=== PATIENT | female | born 1945 | race Caucasian/White ===

== ENCOUNTER 2017-09-02 14:40 | Observation (INO) | payer OTHER, MEDICARE ==
[~2017-09-02] VITALS: Ht 160 cm; Wt 67.9 kg
[~2017-09-02 14:40] MED LIST: DFL100 PO; FISHOIL PO; HYZ/50125 PO; LORA-741 PO; MULTTAB58 PO; ONDA8TAB7 PO; PRAV20TA PO; PROM25TA PO; PRT40 PO; TIOTCAP INH; WLC625 PO
[2017-09-02] MEDS ORDERED: SODIUM CHLORIDE 0.9% 500ML 500 ML IV STA (15:09)
[2017-09-02] MEDS ORDERED: ASPIRIN 81 MG CHEW PO STA (15:09)
[2017-09-02] MEDS ORDERED: NITROGLYCERIN 0.4 MG SL PER TAB CHARGE SL PRN ×2 (15:15→16:15)
[2017-09-02 15:33] LABS: BASO % 0.4 %; BASO ABS # 0.04 K/uL (0-0.2); EOS % 6.6 %; EOS ABS # 0.65 K/uL (0-0.5); HEMATOCRIT 41.6 % (37-47); HEMOGLOBIN 14.8 g/dL (12.0-16.0); IG# 0.01 K/uL (0.00-0.02); LYMPH % 23.1 %; LYMPH ABS # 2.27 K/uL (1.2-3.4); MEAN CORPUSCULAR HEMOGLOBIN 32.4 pg (25-34); MEAN CORPUSCULAR HGB CONC 35.6 g/dl (32-36); MONO % 8.2 %; MONO ABS # 0.81 K/uL (0.11-0.59); NEUT % 61.6 %; NEUT ABS # 6.05 K/uL (1.4-6.5); PLATELET COUNT 211 K/uL (130-400); RED CELL DISTRIBUTION WIDTH CV 12.6 % (11.5-14.5); RED CELL DISTRIBUTION WIDTH SD 41.8 fL (36.4-46.3); WHITE BLOOD COUNT 9.83 K/uL (4.8-10.8)
[2017-09-02 15:49] LABS: BLOOD UREA NITROGEN 19 mg/dl (7-18); CALCIUM 8.7 mg/dl (8.5-10.1); CARBON DIOXIDE 25 mmol/L (21-32); CREATININE 0.84 mg/dl (0.60-1.20); GLUCOSE 84 mg/dl (70-99); POTASSIUM 3.3 mmol/L (3.5-5.1); SODIUM 141 mmol/L (136-145)
--- NOTE | 2017-09-02 15:57 | DIAGNOSTIC IMAGING REPORT ---
CHEST ONE VIEW PORTABLE CLINICAL HISTORY: Chest Pain dyspnea COMPARISON STUDY: 05/26/2015 FINDINGS: The bones soft tissues and hemidiaphragms are normal. The cardiomediastinal silhouette is normal. The lungs are clear. The pulmonary vasculature is normal. IMPRESSION: Negative chest. The above report was generated using voice recognition software. It may contain grammatical, syntax or spelling errors. Electronically signed by: Adrian Galeano M.D. 09/02/2017 3:56 PM Dictated Date/Time: 09/02/2017 3:56 PM
[2017-09-02] MEDS ORDERED: FENTANYL CITRATE INJ 50 MCG/1 ML 2 ML VIAL IV STA (16:08)
[2017-09-02] MEDS ORDERED: POTASSIUM CHLORIDE 10 MEQ TABCR PO STA (16:10)
[2017-09-02] MEDS ORDERED: CLOP1TAB5 PO (16:11)
[2017-09-02] MEDS ORDERED: ASPI81TA28 PO (16:11)
[2017-09-02] MEDS ORDERED: TAMO20TA9 PO (16:11)
[2017-09-02] MEDS ORDERED: PRAV20TA PO (16:11)
[2017-09-02] MEDS ORDERED: HYZ/50125 PO (16:11)
[2017-09-02] MEDS ORDERED: LORA-741 PO (16:11)
[2017-09-02] MEDS ORDERED: WLC625 PO (16:11)
[2017-09-02] MEDS ORDERED: MAGNESIUM HYDROXIDE SUSP 30 ML UDC PO PRN (16:15)
[2017-09-02] MEDS ORDERED: ONDANSETRON INJ 2 MG/ML 2 ML VIAL IV PRN (16:15)
[2017-09-02] MEDS ORDERED: ACETAMINOPHEN 325 MG TAB PO PRN (16:15)
[2017-09-02] MEDS ORDERED: ALUMINUM/MAGNESIUM/SIMETH (MAALOX MAX) 30 ML UDC PO PRN (16:15)
[2017-09-02] MEDS ORDERED: POLYETHYLENE (MIRALAX) 17 GM PACK PO PRN (16:15)
--- NOTE | 2017-09-02 16:25 | History and Physical ---
History & Physical Date & Time of Service: September 02, 2017 at 16:24 Chief Complaint: Chest Tightness Primary Care Physician: Lee aMrroquin M.D. History of Present Illness Source: patient Open dictation this is a 71-year-old female with a past medical history of peripheral vascular disease with chronic right subclavian stenosis and carotid steal syndrome, status post bilateral common iliac stenting Was seen at [facility] cardiology office today with complaint of chest pain/ chest heaviness ongoing for the past 1 day, with radiation to both associated with shortness of, dizziness spell, had diaphoresis, episode of nausea and vomiting. Reported she has been having this chest heaviness intermittently for the past few weeks, symptom will resolved after taking rest But the chest discomfort started since yesterday has been persistent Twelve-lead EKG showed ST-T wave changes in inferior and anterior leads She was sent to [facility] ER for further evaluation Patient had a nuclear stress test on July 2015: Which was negative for stress- induced ischemia LV ejection fraction more than 70% In the ER patient continued to have chest heaviness, getting intermittent relief with sublingual nitro Refused to have a Nitropaste placed due to severe hypotensive episode in past Past Medical/Surgical History Medical Problems: (1) Anemia (2) Asthma (3) Breast cancer (4) Breast cancer (5) Chest pain (6) Constipation (7) Constipation (8) GERD (gastroesophageal reflux disease) (9) GI bleed (10) Hematemesis (11) History of endoscopy (12) Hypertension (13) Hypertension (14) Neck pain (15) Orthostatic hypotension (16) SOB (shortness of breath) Surgical Problems: (1) H/O mastectomy (2) H/O: hysterectomy (3) History of cholecystectomy (4) History of hysterectomy (5) History of mastectomy (6) Hx of cholecystectomy Family History FHx: cancer FHx: diabetes mellitus FHx: gallbladder disease FHx: heart disease FHx: hypertension FHx: lung disease Social History Smoking Status: Current Every Day Smoker Drug Use: none Marital Status: Housing status: lives with family Occupational Status: retired Immunizations History of Influenza Vaccine: Yes History of Tetanus Vaccine?: Unknown History of Pneumococcal: Yes Pneumococcal Date: Jun 06, 2010 History of Hepatitis B Vaccine: No Multi-Drug Resistant Organisms History of MDRO: No Allergies Coded Allergies: Morphine (Verified Allergy, Mild, UNSURE, 09/02/17) Clarithromycin (Verified Allergy, Unknown, ., 09/02/17) Codeine (Verified Allergy, Unknown, 09/02/17) Penicillins (Verified Allergy, Unknown, 09/02/17) Nitroglycerin (Unverified Adverse Reaction, Severe, BP DROP, 09/02/17) Home Medications Scheduled Aspirin (Aspirin Ec), 81 MG PO DAILY Clopidogrel Bisulfate (Plavix), 75 MG PO DAILY Colesevelam Hcl (Welchol), 2 TAB PO DAILY Hctz/Losartan (Hyzaar 12.5MG/50MG), 1 TAB PO DAILY Lorazepam (Ativan), 0.5 MG PO HS Pravastatin (Pravachol ), 20 MG PO DAILY Tamoxifen (Nolvadex), 20 MG PO DAILY Review of Systems Constitutional: + weight loss, + weakness Respiratory: + cough, + sputum, + shortness of breath, + dyspnea on exertion Cardiovascular: + chest pain (Heaviness intermittently), + palpitations Abdomen: + nausea, + vomiting Neurologic: No memory loss, No paralysis, No weakness, No numbness/tingling, No vertigo, No balance problems, No problem reported Psychiatric: No depression symptoms, No anhedonism, No anxiety, No insomnia, No substance abuse, No problem reported Endocrine: No fatigue, No excessive thirst, No excessive urination, No problem reported Physical Exam Vital Signs Date Time Temp Pulse Resp B/P (MAP) Pulse Ox O2 Delivery O2 Flow Rate FiO2 09/02/17 14:50 96 Room Air 09/02/17 14:42 36.8 78 20 156/76 96 Room Air General Appearance: no apparent distress Head: normocephalic, atraumatic Eyes: normal inspection, PERRL, EOMI, sclerae normal Neck: no JVD, no carotid bruits, trachea midline Respiratory/Chest: chest non-tender, lungs clear, normal breath sounds, no respiratory distress Cardiovascular: regular rate, rhythm, no JVD, no murmur Abdomen/GI: normal bowel sounds, non tender, soft Extremities/Musculoskelatal: no calf tenderness, normal capillary refill, no pedal edema Neurologic/Psych: no motor/sensory deficits, alert, normal reflexes, oriented x 3 Skin: normal color, warm/dry, no rash Diagnostics Laboratory Results Results Past 24 Hours Test 09/02/17 15:20 Range/Units White Blood Count 9.83 4.8-10.8 K/uL Red Blood Count 4.57 4.2-5.4 M/uL Hemoglobin 14.8 12.0-16.0 g/dL Hematocrit 41.6 37-47 % Mean Corpuscular Volume 91.0 80-100 fL Mean Corpuscular Hemoglobin 32.4 25-34 pg Mean Corpuscular Hemoglobin Concent 35.6 32-36 g/dl Platelet Count 211 130-400 K/uL Mean Platelet Volume 11.0 7.4-10.4 fL Neutrophils (%) (Auto) 61.6 % Lymphocytes (%) (Auto) 23.1 % Monocytes (%) (Auto) 8.2 % Eosinophils (%) (Auto) 6.6 % Basophils (%) (Auto) 0.4 % Neutrophils # (Auto) 6.05 1.4-6.5 K/uL Lymphocytes # (Auto) 2.27 1.2-3.4 K/uL Monocytes # (Auto) 0.81 0.11-0.59 K/uL Eosinophils # (Auto) 0.65 0-0.5 K/uL Basophils # (Auto) 0.04 0-0.2 K/uL RDW Standard Deviation 41.8 36.4-46.3 fL RDW Coefficient of Variation 12.6 11.5-14.5 % Immature Granulocyte % (Auto) 0.1 % Immature Granulocyte # (Auto) 0.01 0.00-0.02 K/uL D-Dimer 270 0-500 ug/L FEU Sodium Level 141 136-145 mmol/L Potassium Level 3.3 3.5-5.1 mmol/L Chloride Level 109 98-107 mmol/L Carbon Dioxide Level 25 21-32 mmol/L Anion Gap 7.0 3-11 mmol/L Blood Urea Nitrogen 19 7-18 mg/dl Creatinine 0.84 0.60-1.20 mg/dl Est Creatinine Clear Calc Drug Dose 56.4 ml/min Estimated GFR () 80.5 Estimated GFR (Non- 69.4 BUN/Creatinine Ratio 22.7 10-20 Random Glucose 84 70-99 mg/dl Calcium Level 8.7 8.5-10.1 mg/dl Total Creatine Kinase 62 26-192 U/L Creatine Kinase MB 2.0 0.5-3.6 ng/ml Creatine Kinase MB Ratio 3.2 0-3.0 Troponin I < 0.015 0-0.045 ng/ml Diagnostic Radiology CHEST ONE VIEW PORTABLE CLINICAL HISTORY: Chest Pain dyspnea COMPARISON STUDY: 05/26/2015 FINDINGS: The bones soft tissues and hemidiaphragms are normal. The cardiomediastinal silhouette is normal. The lungs are clear. The pulmonary vasculature is normal. IMPRESSION: Negative chest. EKG Sinus rhythm with Premature supraventricular complexes ST & T wave abnormality, consider anterior ischemia Abnormal ECG When compared with ECG of 26-MAY-2015 20:06, Premature supraventricular complexes are now Present Impression Assessment and Plan CHEST PAIN/UNSTABLE ANGINA Patient presents with typical anginal symptoms, which chest heaviness, diaphoresis, nausea Twelve-lead EKG showed ST-T wave changes on the inferior and anterior leads Initial troponin is negative Patient will be admitted to telemetry for cardiac workup Continue sublingual nitro as needed for chest pain Patient refused to have Nitropaste /history of severe hypotensive episode with Nitropaste Resting echo Cardiology consult requested Will be continued with aspirin Plavix and statin N.p.o. past midnight for possible stress test in a.m. HISTORY OF PERIPHERAL VASCULAR DISEASE/RIGHT SUBCLAVIAN ARTERY STENOSIS CHRONIC Continue aspirin Plavix and statin HYPERTENSION Continue outpatient meds-Cozaar 50 mg daily HYPERLIPIDEMIA Continue statin Resting lipid panel in a.m. ONGOING TOBACCO ABUSE Smoking cessation counseling provided CODE STATUS: Full code DVT prophylaxis: Moderate distress Subcu heparin Disposition: Expected to be discharged home when medically Medicine follow-up with Dr. Lee Vaughn at [facility] Level of Care Telemetry Resuscitation Status FULL RESUSCITATION VTE Prophylaxis Risk Level: Moderate Given or contraindicated: Unfractionated heparin SQ Additional Copies To Lee Marroquin M.D., Harper Greene PA-C
[2017-09-02] MEDS ORDERED: IV FLUIDS COMPLETED PRN (16:30)
[2017-09-02 16:41] LABS: ALBUMIN 3.8 gm/dl (3.4-5.0); ALKALINE PHOSPHATASE 40 U/L (45-117); ALT/SGPT 15 U/L (12-78); AST/SGOT 14 U/L (15-37); LIPASE 256 U/L (73-393); TOTAL PROTEIN 6.9 gm/dl (6.4-8.2)
[2017-09-02 17:22] LABS: PTT PATIENT 24.2 SECONDS (21.0-31.0)
[2017-09-02] MEDS ORDERED: MoRPHine SULFATE 4 MG/ML 1 ML CARP\\VIAL IV STA (17:32)
[2017-09-02] MEDS ORDERED: LOSARTAN POTASSIUM 50 MG TAB PO ONE (17:37)
[2017-09-02] MEDS ORDERED: HYDROmorphone INJ 0.5 MG/0.5 ML SYR IV STA (17:39)
[2017-09-02] MEDS ORDERED: BISACODYL 5 MG TABEC PO PRN (17:45)
[2017-09-02] MEDS ORDERED: LORAZEPAM 0.5 MG TAB PO PRN (17:45)
[2017-09-02] MEDS ORDERED: MoRPHine SULFATE 4 MG/ML 1 ML CARP\\VIAL IV PRN (17:45)
--- NOTE | 2017-09-02 17:54 | EMERGENCY ROOM VISIT NOTE ---
History Report prepared by Elias: Josr Frost Under the Supervision of: Dr. Aquilino Daly D.O. First contact with patient: 14:58 Chief Complaint: CHEST PAIN Stated Complaint: CHEST TIGHTNESS Nursing Triage Summary: c/o intermittent tightness in chest, nausea and SOB. hx PAD, HTN. History of Present Illness The patient is a 71 year old female who presents to the Emergency Room with complaints of constant chest pain beginning last night. She describes her pain as feeling of "tightness" and rates it as a 6/10 in severity. The patient's pain began in the center of her chest but has moved towards the right. Her pain initially awoke her from sleep. She also complains of cough (x a few weeks), nausea and pain radiating to her bilateral arms and neck. The patient notes that she was vomiting a lot last night (3-4 episodes). Her chest pain is worsened with exertion. 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 Pt denies headache, change in vision, fevers, shortness of breath, diarrhea, pain with urination, and melena. She has a history of PAD, and HTN. Source of History: patient Onset: Last night Position: chest Quality: other ("tightness") Timing: constant Modifying Factors (Worsening): exertion Associated Symptoms: + cough (x a few weeks), + neck pain, + vomiting (last night), No fevers, No headache, No SOB, No abdominal pain, No melena, No diarrhea, No urinary symptoms Note: Positive: bilateral arm pain. Review of Systems See HPI for pertinent positives & negatives. A total of 10 systems reviewed and were otherwise negative. Past Medical & Surgical Medical Problems: (1) Breast cancer (2) Chest pain (3) GERD (gastroesophageal reflux disease) (4) History of endoscopy (5) Hypertension (6) SOB (shortness of breath) Surgical Problems: (1) History of cholecystectomy (2) History of hysterectomy (3) History of mastectomy Family History FHx: cancer FHx: diabetes mellitus FHx: gallbladder disease FHx: heart disease FHx: hypertension FHx: lung disease Social History Smoking Status: Current Every Day Smoker Alcohol Use: none Drug Use: none Marital Status: Housing Status: lives with family Occupation Status: retired Current/Historical Medications Scheduled Aspirin (Aspirin Ec), 81 MG PO DAILY Clopidogrel Bisulfate (Plavix), 75 MG PO DAILY Colesevelam Hcl (Welchol), 2 TAB PO DAILY Hctz/Losartan (Hyzaar 12.5MG/50MG), 1 TAB PO DAILY Lorazepam (Ativan), 0.5 MG PO HS Pravastatin (Pravachol ), 20 MG PO DAILY Tamoxifen (Nolvadex), 20 MG PO DAILY Allergies Coded Allergies: Morphine (Verified Allergy, Mild, UNSURE, 09/02/17) Clarithromycin (Verified Allergy, Unknown, ., 09/02/17) Codeine (Verified Allergy, Unknown, 09/02/17) Penicillins (Verified Allergy, Unknown, 09/02/17) Nitroglycerin (Unverified Adverse Reaction, Severe, BP DROP, 09/02/17) Physical Exam Vital Signs Date Time Temp Pulse Resp B/P (MAP) Pulse Ox O2 Delivery O2 Flow Rate FiO2 09/02/17 14:50 96 Room Air 09/02/17 14:42 36.8 78 20 156/76 96 Room Air Physical Exam GENERAL: Sitting up in bed, disheveled, no distress, non-toxic EYE EXAM: normal conjunctiva. OROPHARYNX: no exudate, no erythema, lips, buccal mucosa, and tongue normal and mucous membranes are moist NECK: supple, no nuchal rigidity, no adenopathy, non-tender LUNGS: Clear to auscultation. Normal chest wall mechanics HEART: no murmurs, S1 normal and S2 normal ABDOMEN: abdomen soft, non-tender, normo-active bowel sounds, no masses, no rebound or guarding. BACK: Back is symmetrical on inspection and there is no deformity, no midline tenderness, no CVA tenderness. SKIN: no rashes and no bruising UPPER EXTREMITIES: upper extremities are grossly normal. LOWER EXTREMITIES: No pitting edema. NEURO EXAM: Normal sensorium, cranial nerves II-XII grossly intact, normal speech, no gross weakness of arms, no gross weakness of legs. Medical Decision & Procedures ER Provider Diagnostic Interpretation: Radiology results as stated below per my review and the radiologist's interpretation: CHEST ONE VIEW PORTABLE FINDINGS: The bones soft tissues and hemidiaphragms are normal. The cardiomediastinal silhouette is normal. The lungs are clear. The pulmonary vasculature is normal. IMPRESSION: Negative chest. The above report was generated using voice recognition software. It may contain grammatical, syntax or spelling errors. Electronically signed by: Adrian Galeano M.D. 09/02/2017 3:56 PM Laboratory Results 09/02/17 15:20 Red Blood Count 4.57, Mean Corpuscular Volume 91.0, Mean Corpuscular Hemoglobin 32.4, Mean Corpuscular Hemoglobin Concent 35.6, Mean Platelet Volume 11.0, Neutrophils (%) (Auto) 61.6, Lymphocytes (%) (Auto) 23.1, Monocytes (%) (Auto) 8.2, Eosinophils (%) (Auto) 6.6, Basophils (%) (Auto) 0.4, Neutrophils # (Auto) 6.05, Lymphocytes # (Auto) 2.27, Monocytes # (Auto) 0.81, Eosinophils # (Auto) 0.65, Basophils # (Auto) 0.04 09/02/17 15:20 Test 09/02/17 15:20 White Blood Count 9.83 K/uL (4.8-10.8) Red Blood Count 4.57 M/uL (4.2-5.4) Hemoglobin 14.8 g/dL (12.0-16.0) Hematocrit 41.6 % (37-47) Mean Corpuscular Volume 91.0 fL (80-100) Mean Corpuscular Hemoglobin 32.4 pg (25-34) Mean Corpuscular Hemoglobin Concent 35.6 g/dl (32-36) Platelet Count 211 K/uL (130-400) Mean Platelet Volume 11.0 fL (7.4-10.4) Neutrophils (%) (Auto) 61.6 % Lymphocytes (%) (Auto) 23.1 % Monocytes (%) (Auto) 8.2 % Eosinophils (%) (Auto) 6.6 % Basophils (%) (Auto) 0.4 % Neutrophils # (Auto) 6.05 K/uL (1.4-6.5) Lymphocytes # (Auto) 2.27 K/uL (1.2-3.4) Monocytes # (Auto) 0.81 K/uL (0.11-0.59) Eosinophils # (Auto) 0.65 K/uL (0-0.5) Basophils # (Auto) 0.04 K/uL (0-0.2) RDW Standard Deviation 41.8 fL (36.4-46.3) RDW Coefficient of Variation 12.6 % (11.5-14.5) Immature Granulocyte % (Auto) 0.1 % Immature Granulocyte # (Auto) 0.01 K/uL (0.00-0.02) Prothrombin Time 10.4 SECONDS (9.0-12.0) Prothromb Time International Ratio 1.0 (0.9-1.1) Activated Partial Thromboplast Time 24.2 SECONDS (21.0-31.0) Partial Thromboplastin Ratio 0.9 D-Dimer 270 ug/L FEU (0-500) Anion Gap 7.0 mmol/L (3-11) Est Creatinine Clear Calc Drug Dose 56.4 ml/min Estimated GFR () 80.5 Estimated GFR (Non- 69.4 BUN/Creatinine Ratio 22.7 (10-20) Calcium Level 8.7 mg/dl (8.5-10.1) Total Bilirubin 0.6 mg/dl (0.2-1) Direct Bilirubin 0.1 mg/dl (0-0.2) Aspartate Amino Transf (AST/SGOT) 14 U/L (15-37) Alanine Aminotransferase (ALT/SGPT) 15 U/L (12-78) Alkaline Phosphatase 40 U/L (45-117) Total Creatine Kinase 62 U/L (26-192) Creatine Kinase MB 2.0 ng/ml (0.5-3.6) Creatine Kinase MB Ratio 3.2 (0-3.0) Troponin I < 0.015 ng/ml (0-0.045) Total Protein 6.9 gm/dl (6.4-8.2) Albumin 3.8 gm/dl (3.4-5.0) Lipase 256 U/L (73-393) Laboratory results per my review. Medications Administered Medications (Trade) Dose Ordered Sig/Jorge Route Start Time Stop Time Status Last Admin Dose Admin Aspirin (Aspirin Chew) 324 mg NOW STAT PO 09/02/17 15:09 09/02/17 15:10 DC 09/02/17 15:52 324 MG Sodium Chloride 500 ml @ 999 mls/hr Q31M STAT IV 09/02/17 15:09 09/02/17 15:39 DC 09/02/17 15:52 999 MLS/HR ECG Per My Interpretation Indication: chest pain Rate (beats per minute): 68 Rhythm: sinus rhythm Findings: other (Normal axis. Nonspecific ST-wave changes anterior and lateral. ) Comparison ECG Date: May 26, 2015 Change: no significant change ED Course ED COURSE: Vital signs were reviewed and showed hypertension. The patients medical record was reviewed The above diagnostic studies were performed and reviewed. ED treatments and interventions as stated above. 1502: The patient was evaluated in room B4B. A complete history and physical examination was performed. 1509: Ordered Sodium Chloride 500 ml @ 999 mls/hr IV, Aspirin Chew 324 mg PO. 1515: Ordered Nitrostat Tab 0.4 mg SL. 1608: Ordered Fentanyl Inj 50 mcg IV. 1610: Upon reevaluation, the patient is resting comfortably. I discussed my findings with the patient and she understands and agrees with the treatment plan. Based on the patients age, coexisting illnesses, exam and lab findings the decision to treat as an inpatient was made. The patient remained stable while under my care. The patient will be evaluated for further management. Medical Decision Differential diagnoses includes but is not limited to acute coronary syndrome, myocardial infarction, pericarditis, pulmonary embolus, aortic dissection, pneumonia, pneumothorax, musculoskeletal, shingles, esophageal. Patient is a 71-year-old female who presents the ER for chest pain referred in by cardiology. CBC along with BMP, LFTs, bilirubin and troponin was negative. Lipase is normal. D-dimer was negative. EKG is unchanged from previous. Chest x-ray unremarkable. Patient was given nitro and aspirin. She did have improvement of her symptoms. She was eventually given fentanyl as well for the chest pain. She was updated at bedside. She was evaluated by internal medicine will be observed overnight. Medication Reconcilliation Current Medication List: was personally reviewed by me Blood Pressure Screening Patient's blood pressure: Elevated blood pressure Blood pressure disposition: Referred to PCP Consults Time Called: 1600 Consulting Physician: Dr. Carlitos Armendariz Returned Call: 1605 I reviewed the patient's case with Dr. Urbina. Kala will evaluate the patient for further management. Impression Primary Impression: Precordial chest pain Scribe Attestation The scribe's documentation has been prepared under my direction and personally reviewed by me in its entirety. I confirm that the note above accurately reflects all work, treatment, procedures, and medical decision making performed by me. Departure Information Dispostion Being Evaluated By Hospitalist Referrals Vimal Barajas M.D. (PCP) Patient Instructions My [facility]
[2017-09-02 18:12] VITALS: BP 173/81; PULSE 74; TEMP 36.6; Ht 160 cm; Wt 67.9 kg
[2017-09-02 19:44] VITALS: BP 120/61; PULSE 70; TEMP 36.9; O2SAT 96
[2017-09-02 20:00] VITALS: O2SAT 96
[2017-09-02] MEDS: HEPARIN SOD 5000 UNIT/0.5 ML CARP SQ SCH (20:45)
[2017-09-02] MEDS ORDERED: DOCUSATE SODIUM 100 MG CAP PO SCH (21:00)
[2017-09-02 23:37] VITALS: BP 171/83; PULSE 68; TEMP 36.6; O2SAT 96
[2017-09-03 03:48] VITALS: BP 115/68; PULSE 61; TEMP 36.9; O2SAT 95
[2017-09-03 04:03] LABS: HEMATOCRIT 36.9 % (37-47); HEMOGLOBIN 12.9 g/dL (12.0-16.0); MEAN CORPUSCULAR HEMOGLOBIN 32.2 pg (25-34); MEAN PLATELET VOLUME 10.9 fL (7.4-10.4); PLATELET COUNT 187 K/uL (130-400); RED CELL DISTRIBUTION WIDTH CV 12.6 % (11.5-14.5); RED CELL DISTRIBUTION WIDTH SD 42.8 fL (36.4-46.3); WHITE BLOOD COUNT 7.68 K/uL (4.8-10.8)
[2017-09-03 04:21] LABS: BLOOD UREA NITROGEN 19 mg/dl (7-18); CALCIUM 7.9 mg/dl (8.5-10.1); CARBON DIOXIDE 31 mmol/L (21-32); CREATININE 1.05 mg/dl (0.60-1.20); GLUCOSE 126 mg/dl (70-99); POTASSIUM 3.7 mmol/L (3.5-5.1); SODIUM 145 mmol/L (136-145)
[2017-09-03 04:33] LABS: CHOLESTEROL 67 mg/dl (0-200); LDL CHOLESTEROL CALCULATED 21 mg/dl
[2017-09-03] MEDS: HEPARIN SOD 5000 UNIT/0.5 ML CARP SQ SCH (06:32)
[2017-09-03 08:00] VITALS: BP 146/72; PULSE 61; TEMP 36.5; O2SAT 95
[2017-09-03] MEDS ORDERED: DOBUTamine HCL 12.5 MG/ML 20 ML VIAL ONE (08:40)
[2017-09-03] MEDS ORDERED: METOPROLOL TARTRATE 1 MG/ML VIAL ONE ×2 (08:41)
[2017-09-03] MEDS ORDERED: ATROPINE SULFATE 0.1 MG/ML 5ML SYR ONE ×2 (08:41→08:42)
[2017-09-03] MEDS ORDERED: CLOPIDOGREL BISULFATE 75 MG TAB PO SCH (09:00)
[2017-09-03] MEDS ORDERED: SENNA 8.6 MG TAB PO SCH (09:00)
[2017-09-03] MEDS ORDERED: PRAVASTATIN SOD 20 MG TAB PO SCH (09:00)
[2017-09-03] MEDS ORDERED: LOSARTAN POTASSIUM 50 MG TAB PO SCH (09:00)
[2017-09-03] MEDS ORDERED: ASPIRIN 81 MG ECTAB PO SCH ×2 (09:00)
[2017-09-03] MEDS ORDERED: PERFLUTREN LIPID MICROSPHERE (DEFINITY) IV ONE (10:09)
--- NOTE | 2017-09-03 10:32 | Cardiology Consultation ---
Cardiology Consultation Date of Service September 03, 2017. (Harper Keenan, RANDI) Cardiology Consultation Requesting Physician: Dr. Urbina Attending Radio Electrician: Dr. Cardoso HPI: Patient is 71-year-old female with history of significant generalized atherosclerosis with severe peripheral vascular disease, with chronic right subclavian stenosis and carotid steal syndrome, status post common iliac stenting, bilateral, for bilateral lower claudication, September of 2015. she follows with [facility] vascular [place] department. Other history includes presumed CAD, no prior cardiac cath. Last stress test in 2015 which was negative for inducible ischemia, chronic tobacco abuse with underlying COPD, hypertension, dyslipidemia and prior breast CA s/p mastectomy. Patient presented to outpatient cardio office yesterday describing persistent chest tightness for approx 12 hours, described as a heaviness across her chest/ squeezing sensation. Symptoms were continuously. No aggravating or alleviated symptoms. Heaviness radiates to arms bilaterally and back. Symptoms have been associated with nausea, vomiting overnight, diaphoresis and shortness of breath. EKG in office showed non specific ST/T wave abnormality, but not overtly changed from prior. Due to ongoing/persistent symptoms and risk factors for underlying CAD, she was referred to ER for evaluation and r/o ACS. In ER, she declined use of nitro (listed as allergy) due to significant symptomatic hypotension in the past. Treated with Dilaudid with mild improvement in her symptoms. Cardiac enzymes have been unremarkable x3. EKG without acute changes despite ongoing chest tightness. chest xray unremarkable. Patient also reports worsening cough x several weeks. No fever or chills. Continues to smoke. At time of consult patient reports improvement in her chest tightness. Now rating 1 out of 10. Notes ongoing cough. Denies fever chills. No recurrent vomiting or nausea. No shortness of breath. No orthopnea, PND, lower extremity edema. Review of Systems: See HPI for pertinent positives. All other 10 point review of systems is negative. Patient Active Problem List Major depressive disorder GENERALIZED ANXIETY DIS History of peptic ulcer disease Reflux esophagitis FAM HX-ISCHEM HEART DIS COPD, severity to be determined BENIGN HYPERTENSION Benign neoplasm of colon GERD (gastroesophageal reflux disease) Chest pain, atypical Allergic rhinitis Mixed hyperlipidemia Arthritis ASVD (arteriosclerotic vascular disease) Tobacco use disorder Hiatal hernia Malignant neoplasm of upper-outer quadrant of female breast Encounter for antineoplastic chemotherapy PAD (peripheral artery disease) Atherosclerosis of [place] artery of left lower extremity with intermittent claudication (HCC) Osteoporosis Subclavian artery stenosis, right Past Surgical History: Procedure Laterality Date BX LYMPH NODE DEEP AXIL 04/07/2013 BIOPSY LYMPH NODE DEEP AXILLARY OPEN performed by Lena Doe MD at [place] [facility] COLONOSCOPY W/ LESION REMOVAL, SNARE 07/16/2010 one 5mm poly in ascending colon a tattoo seen in sigmoid path pending COLONOSCOPY W/ SUBMUCOUS INJ 07/16/2010 polyp x1, tattooed area,bxs, path shows adenomatous tissue, repeat in 3 years COLONOSCOPY, DIAGNOSTIC (RECTUM) 02/23/2014 adenomatous & hyperplastic polyps, repeat 3 yrs/COLONOSCOPY FLEXIBLE PROXIMAL DIAGNOSTIC performed by Gregory Odom MD at ENDOSCOPY [facility] COLONOSCOPY, DIAGNOSTIC (RECTUM) 04/02/2017 adenomatous polyp, poor prep, repeat 3 yrs/COLONOSCOPY FLEXIBLE PROXIMAL DIAGNOSTIC performed by Jermaine Jaramillo MD at ENDOSCOPY [facility] COLONOSCOPY, W/BIOPSY 11/19/06 adenomatous and hyperplastic tissue-REPEAT IN 6 MONTHS COLONOSCOPY/REMOVE LESION 09/13/07 polyps x 3 removed/adenomatous/repeat in 1 yr EGD, FLEXIBLE, DIAGNOSTIC 02/25/2012 UPPER GI ENDOSCOPY DIAGNOSTIC performed by Jermaine Jaramillo MD at [facility] EGD, FLEXIBLE, DIAGNOSTIC 08/28/2013 ring @ GE junction, HH, healed tear at GE junction/ ESOPHAGOGASTRODUODENOSCOPY (EGD), FLEXIBLE, TRANSORAL, DIAGNOSTIC performed by Gail Delacruz MD at ENDOSCOPY [facility] ILIAC ART. REVASC W/ STENT+ANGIOPLASTY Left 10/23/2015 ILIAC ARTERY REVASC W/ STENT+ANGIOPLASTY performed by Darwin Reid MD at [place] [facility] INSER TUNN ACC DEV;5 YRS/OLDER 05/25/13 Placement of right subclavian venous Port-A-Cath 05/25/13 Dr[place] [facility] [place]ERIOGRAM EXTREMITY UNILATERAL 10/23/2015 IMAGING SUPERVISION & INTERPRETATION EXTREMITY UNILATERAL performed by Darwin Reid MD at [facility] MASTECTOMY, SIMPLE, COMPLETE 04/07/2013 MASTECTOMY SIMPLE COMPLETE performed by Lena Doe MD at [facility] REMOVAL OF OVARY/OVIDUCT(S) 1996 BSO TYRON REMOVE GALLBLADDER 1990 TOTAL HYSTERECTOMY 1996 menorrhagia Family History Problem Relation Age of Onset Heart Disorder Sister CHF age 49 Diabetes Sister Heart Disorder Mother [place] x 3 Cancer Sister breast, bowel - developed breast CA age 45 Cancer Aunt (Unspecified) breast Cancer Aunt (Unspecified) breast Cancer Aunt (Unspecified) breast cirrhosis-liver- ETOH [OTHER] Father 54 Social History Substance Use Topics Smoking status: Current Every Day Smoker Packs/day: 1.00 Years: 40.00 Types: Cigarettes Smokeless tobacco: Never Used Alcohol use Yes Comment: socially Review of patient's allergies indicates: Allergen Reactions Clarithromycin stomach intolerance Codeine Other (Please comment) Dizzy Morphine Sulfate Other (Please comment) Vertigo Nitroglycerin States she has extremely low blood pressure with nitroglycerin Nsaids Avoid NSAIDs Penicillins Hives Reported Home Medications Medications Dose Route/Sig Max Daily Dose Days Date Category Nolvadex (Tamoxifen Citrate) 20 Mg Tab 20 Mg PO DAILY 09/02/17 Reported Aspirin Ec (Aspirin) 81 Mg Tab 81 Mg PO DAILY 09/02/17 Reported Plavix (Clopidogrel Bisulfate) 75 Mg Tab 75 Mg PO DAILY 09/02/17 Reported Pravachol (Pravastatin Sodium) 20 Mg Tab 20 Mg PO DAILY 09/02/17 Reported Ativan (Lorazepam) 0.5 Mg Tab 0.5 Mg PO HS 09/02/17 Reported Hyzaar 12.5MG/50MG (HCTZ/Losartan Potassium) Tab 1 Tab PO DAILY 09/02/17 Reported Welchol (Colesevelam Hcl) 625 Mg Tab 2 Tab PO DAILY 09/02/17 Reported PHYSICAL EXAMINATION: Last 8 Hrs Date Time Temp Pulse Resp B/P (MAP) Pulse Ox O2 Delivery O2 Flow Rate FiO2 09/03/17 04:00 Room Air 09/03/17 03:48 36.9 61 18 115/68 (84) 95 Room Air GEN: A+Ox3. NAD.HEENT exam is normocephalic and atraumatic. Nares without discharge. Throat was clear. Neck was supple without thyromegaly or lymphadenopathy. There is no carotid bruit audible today. Lungs are notable for diminished breath sounds diffusely. Cardiovascular exam is regular with normal S-1 and S-2. There is no audible murmur or rub. Abdomen was soft. Extremities reveal diminished pulses trace to 1+ at right radial and bilateral dorsalis pedis. There are no audible abdominal bruits. There is no skin breakdown. DATA: EKG on admission: Sinus rhythm with Premature supraventricular complexes ST & T wave abnormality, consider anterior ischemia Abnormal ECG When compared with ECG of 26-MAY-2015 20:06, Premature supraventricular complexes are now Present Repeat EKG last evening with ongoing CP: Normal sinus rhythm Normal ECG When compared with ECG of 02-SEP-2017 14:48, (unconfirmed) Premature supraventricular complexes are no longer Present Repeat EKG this AM: Normal sinus rhythm Normal ECG When compared with ECG of 02-SEP-2017 17:08, (unconfirmed) No significant change was found Resting 2D echo - report pending Chest xray: No active disease telemetry reviewed: NSR with occ PVC. No concerning arrhythmias. Labs since admission: Last 24 Hours Test 09/02/17 15:20 09/02/17 17:55 09/02/17 21:54 09/02/17 23:12 White Blood Count 9.83 K/uL Red Blood Count 4.57 M/uL Hemoglobin 14.8 g/dL Hematocrit 41.6 % Mean Corpuscular Volume 91.0 fL Mean Corpuscular Hemoglobin 32.4 pg Mean Corpuscular Hemoglobin Concent 35.6 g/dl Platelet Count 211 K/uL Mean Platelet Volume 11.0 fL Neutrophils (%) (Auto) 61.6 % Lymphocytes (%) (Auto) 23.1 % Monocytes (%) (Auto) 8.2 % Eosinophils (%) (Auto) 6.6 % Basophils (%) (Auto) 0.4 % Neutrophils # (Auto) 6.05 K/uL Lymphocytes # (Auto) 2.27 K/uL Monocytes # (Auto) 0.81 K/uL Eosinophils # (Auto) 0.65 K/uL Basophils # (Auto) 0.04 K/uL RDW Standard Deviation 41.8 fL RDW Coefficient of Variation 12.6 % Immature Granulocyte % (Auto) 0.1 % Immature Granulocyte # (Auto) 0.01 K/uL Prothrombin Time 10.4 SECONDS Prothromb Time International Ratio 1.0 Activated Partial Thromboplast Time 24.2 SECONDS Partial Thromboplastin Ratio 0.9 D-Dimer 270 ug/L FEU Sodium Level 141 mmol/L Potassium Level 3.3 mmol/L 3.7 mmol/L Chloride Level 109 mmol/L Carbon Dioxide Level 25 mmol/L Anion Gap 7.0 mmol/L Blood Urea Nitrogen 19 mg/dl Creatinine 0.84 mg/dl Est Creatinine Clear Calc Drug Dose 56.4 ml/min Estimated GFR () 80.5 Estimated GFR (Non- 69.4 BUN/Creatinine Ratio 22.7 Random Glucose 84 mg/dl Calcium Level 8.7 mg/dl Total Bilirubin 0.6 mg/dl Direct Bilirubin 0.1 mg/dl Aspartate Amino Transf (AST/SGOT) 14 U/L Alanine Aminotransferase (ALT/SGPT) 15 U/L Alkaline Phosphatase 40 U/L Total Creatine Kinase 62 U/L Creatine Kinase MB 2.0 ng/ml Creatine Kinase MB Ratio 3.2 Troponin I < 0.015 ng/ml 0.022 ng/ml Total Protein 6.9 gm/dl Albumin 3.8 gm/dl Lipase 256 U/L Urine Color YELLOW Urine Appearance CLEAR Urine pH 5.5 Urine Specific [place] 1.015 Urine Protein NEG Urine Glucose (UA) NEG Urine Ketones NEG Urine Occult Blood NEG Urine Nitrite NEG Urine Bilirubin NEG Urine Urobilinogen NEG Urine Leukocyte Esterase NEG Test 09/03/17 03:43 09/03/17 10:07 White Blood Count 7.68 K/uL Red Blood Count 4.01 M/uL Hemoglobin 12.9 g/dL Hematocrit 36.9 % Mean Corpuscular Volume 92.0 fL Mean Corpuscular Hemoglobin 32.2 pg Mean Corpuscular Hemoglobin Concent 35.0 g/dl RDW Standard Deviation 42.8 fL RDW Coefficient of Variation 12.6 % Platelet Count 187 K/uL Mean Platelet Volume 10.9 fL Sodium Level 145 mmol/L Potassium Level 3.7 mmol/L Chloride Level 111 mmol/L Carbon Dioxide Level 31 mmol/L Anion Gap 3.0 mmol/L Blood Urea Nitrogen 19 mg/dl Creatinine 1.05 mg/dl Est Creatinine Clear Calc Drug Dose 44.9 ml/min Estimated GFR () 61.4 Estimated GFR (Non- 53.0 BUN/Creatinine Ratio 18.1 Random Glucose 126 mg/dl Calcium Level 7.9 mg/dl Magnesium Level 2.0 mg/dl Troponin I < 0.015 ng/ml Triglycerides Level 154 mg/dl Cholesterol Level 67 mg/dl HDL Cholesterol 15 mg/dl LDL Cholesterol, Calculated 21 mg/dl VLDL Cholesterol, Calculated 31 mg/dl Cholesterol/HDL Ratio 4.5 Thyroid Stimulating Hormone (TSH) 1.960 uIu/ml Prior DATA: EKG performed in office yesterday NSR at [address]/T wave abnormality in inferior and anterior leads. No significant changes from previous Prior nuclear stress test report reviewed dated July 2015: Myocardial perfusion imaging is normal. Overall left ventricular systolic function was normal without regional wall motion abnormalities. The left ventricular ejection fraction was >70%. There are no prior studies available for comparison. IMPRESSION: 71-year-old female 1. Chest pain, with associated nausea, vomiting, SOB. -negative cardiac enzymes since admission -non specific ST/T wave abnormality in inferior and anterior leads, not significant changed from previous -symptoms improving 2. SOB/COUGH, COPD - ? exacerbation contributing to symptoms. 3. Severe peripheral vascular disease, as above. Need to perform BP on left arm for accurate readings. 4. Presumed underlying CAD. No prior cardiac catheterization. Negative nuclear stress test in 2016. RECOMMENDATIONS: Proceed with dobutamine stress echo this AM. Further recommendations pending results of stress test. In the meantime, continue ASA, Plavix, statin, and losartan. Not on beta aren due to COPD and resting bradycardia.l She has been intolerant to SL nitro, resulting in significant hypotension per patient. Will not add nitrates at this time. Case discussed wiht Dr. Cardoso. will follow. (Harper Keenan PA-C) Cardiology attending: Pt seen and examined, agree with findings and assessment as per Harper Kumar. Pt states that she's been feeling well overnight, some "jagging pains in chest and back". Dobutamine stress was negative for ischemia. No doubt that patient has coronary artery disease given diffuse vascular disease but stress was nonischemic and symptoms were not reproduced with peak heart rate. Ok to d/ c to home from cardiac standpoint. Continue ASA, Plavix, statin, and losartan. (Harpal Cardoso, D.O.)
[2017-09-03 11:05] VITALS: BP 123/72; PULSE 62; TEMP 36.5; O2SAT 96
[2017-09-03] MEDS ORDERED: ALBUT/IPRATROP 3MG/0.5MG NEB 3 ML VIAL INH PRN (12:15)
--- NOTE | 2017-09-03 12:15 | Progress Note ---
Internal Med Progress Note Date of Service: September 03, 2017. Provider Documentation: SUBJECTIVE: Seen and examined at bedside Had stress test this morning Chest pain resolved Denies SOB, wheezing, nausea, dizziness, abd pain Reports chronic cough OBJECTIVE: Vital Signs-as noted below Physical Exam: General Appearance:Moderately built and nourished, no apparent distress Head: normocephalic, Atraumatic Eyes: normal inspection, EOMI, PERRL Neck: supple, Trachea midline Respiratory/Chest: Decreased breath sounds, CTA Cardiovascular: S1, S2, No murmur Abdomen/GI:Soft, Non tender, Bowel sounds present Extremities/Musculoskelatal:normal inspection, no edema Neurologic/Psych:AAOX3, grossly no focal neurological deficits Skin: normal color, warm Lab data as noted below. 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 H/O Peripheral Vascular disease H/O R subclavian artery stenosis Continue aspirin, Plavix, statin HTN Stable Continue current medications HLP: Continue statin Ongoing Tobacco Abuse: Smoking cessation counseling H/O COPD: No signs of exacerbation Continue home inhalers Code Status: Full code DVT Px: SQ Heparin Disposition: Plan to discharge home today Follow up with your PCP on 09/09/17 at 10:30AM Use inhaler regularly as advised Seek immediate medical attention if your symptoms reoccur or worsen Vital Signs: Date Time Temp Pulse Resp B/P (MAP) Pulse Ox O2 Delivery O2 Flow Rate FiO2 09/03/17 11:30 Room Air 09/03/17 11:05 36.5 62 16 123/72 (89) 96 Room Air 09/03/17 08:00 95 Room Air 09/03/17 08:00 36.5 61 16 146/72 (96) 95 Room Air 09/03/17 04:00 Room Air 09/03/17 03:48 36.9 61 18 115/68 (84) 95 Room Air 09/02/17 23:59 Room Air 09/02/17 23:37 36.6 68 18 171/83 (112) 96 Room Air 09/02/17 20:00 96 Room Air 09/02/17 19:44 36.9 70 18 120/61 (80) 96 Room Air 09/02/17 18:12 36.6 74 18 173/81 Room Air 09/02/17 16:45 71 16 147/78 97 09/02/17 16:30 71 16 147/78 97 Room Air 09/02/17 14:50 96 Room Air 09/02/17 14:42 36.8 78 20 156/76 96 Room Air Lab Results: Results Past 24 Hours Test 09/02/17 15:20 09/02/17 17:55 09/02/17 21:54 09/02/17 23:12 Range/Units White Blood Count 9.83 4.8-10.8 K/uL Red Blood Count 4.57 4.2-5.4 M/uL Hemoglobin 14.8 12.0-16.0 g/dL Hematocrit 41.6 37-47 % Mean Corpuscular Volume 91.0 80-100 fL Mean Corpuscular Hemoglobin 32.4 25-34 pg Mean Corpuscular Hemoglobin Concent 35.6 32-36 g/dl Platelet Count 211 130-400 K/uL Mean Platelet Volume 11.0 7.4-10.4 fL Neutrophils (%) (Auto) 61.6 % Lymphocytes (%) (Auto) 23.1 % Monocytes (%) (Auto) 8.2 % Eosinophils (%) (Auto) 6.6 % Basophils (%) (Auto) 0.4 % Neutrophils # (Auto) 6.05 1.4-6.5 K/uL Lymphocytes # (Auto) 2.27 1.2-3.4 K/uL Monocytes # (Auto) 0.81 0.11-0.59 K/uL Eosinophils # (Auto) 0.65 0-0.5 K/uL Basophils # (Auto) 0.04 0-0.2 K/uL RDW Standard Deviation 41.8 36.4-46.3 fL RDW Coefficient of Variation 12.6 11.5-14.5 % Immature Granulocyte % (Auto) 0.1 % Immature Granulocyte # (Auto) 0.01 0.00-0.02 K/uL Prothrombin Time 10.4 9.0-12.0 SECONDS Prothromb Time International Ratio 1.0 0.9-1.1 Activated Partial Thromboplast Time 24.2 21.0-31.0 SECONDS Partial Thromboplastin Ratio 0.9 D-Dimer 270 0-500 ug/L FEU Sodium Level 141 136-145 mmol/L Potassium Level 3.3 3.7 3.5-5.1 mmol/L Chloride Level 109 98-107 mmol/L Carbon Dioxide Level 25 21-32 mmol/L Anion Gap 7.0 3-11 mmol/L Blood Urea Nitrogen 19 7-18 mg/dl Creatinine 0.84 0.60-1.20 mg/dl Est Creatinine Clear Calc Drug Dose 56.4 ml/min Estimated GFR () 80.5 Estimated GFR (Non- 69.4 BUN/Creatinine Ratio 22.7 10-20 Random Glucose 84 70-99 mg/dl Calcium Level 8.7 8.5-10.1 mg/dl Total Bilirubin 0.6 0.2-1 mg/dl Direct Bilirubin 0.1 0-0.2 mg/dl Aspartate Amino Transf (AST/SGOT) 14 15-37 U/L Alanine Aminotransferase (ALT/SGPT) 15 12-78 U/L Alkaline Phosphatase 40 45-117 U/L Total Creatine Kinase 62 26-192 U/L Creatine Kinase MB 2.0 0.5-3.6 ng/ml Creatine Kinase MB Ratio 3.2 0-3.0 Troponin I < 0.015 0.022 0-0.045 ng/ml Total Protein 6.9 6.4-8.2 gm/dl Albumin 3.8 3.4-5.0 gm/dl Lipase 256 73-393 U/L Urine Color YELLOW Urine Appearance CLEAR CLEAR Urine pH 5.5 4.5-7.5 Urine Specific [place] 1.015 1.000-1.030 Urine Protein NEG NEG Urine Glucose (UA) NEG NEG Urine Ketones NEG NEG Urine Occult Blood NEG NEG Urine Nitrite NEG NEG Urine Bilirubin NEG NEG Urine Urobilinogen NEG NEG Urine Leukocyte Esterase NEG NEG Test 09/03/17 03:43 09/03/17 10:45 09/03/17 11:13 Range/Units White Blood Count 7.68 4.8-10.8 K/uL Red Blood Count 4.01 4.2-5.4 M/uL Hemoglobin 12.9 12.0-16.0 g/dL Hematocrit 36.9 37-47 % Mean Corpuscular Volume 92.0 80-100 fL Mean Corpuscular Hemoglobin 32.2 25-34 pg Mean Corpuscular Hemoglobin Concent 35.0 32-36 g/dl RDW Standard Deviation 42.8 36.4-46.3 fL RDW Coefficient of Variation 12.6 11.5-14.5 % Platelet Count 187 130-400 K/uL Mean Platelet Volume 10.9 7.4-10.4 fL Sodium Level 145 136-145 mmol/L Potassium Level 3.7 3.5-5.1 mmol/L Chloride Level 111 98-107 mmol/L Carbon Dioxide Level 31 21-32 mmol/L Anion Gap 3.0 3-11 mmol/L Blood Urea Nitrogen 19 7-18 mg/dl Creatinine 1.05 0.60-1.20 mg/dl Est Creatinine Clear Calc Drug Dose 44.9 ml/min Estimated GFR () 61.4 Estimated GFR (Non- 53.0 BUN/Creatinine Ratio 18.1 10-20 Random Glucose 126 70-99 mg/dl Calcium Level 7.9 8.5-10.1 mg/dl Magnesium Level 2.0 1.8-2.4 mg/dl Troponin I < 0.015 < 0.015 0-0.045 ng/ml Triglycerides Level 154 0-150 mg/dl Cholesterol Level 67 0-200 mg/dl HDL Cholesterol 15 mg/dl LDL Cholesterol, Calculated 21 mg/dl VLDL Cholesterol, Calculated 31 mg/dl Cholesterol/HDL Ratio 4.5 Thyroid Stimulating Hormone (TSH) 1.960 0.300-4.500 uIu/ml Bedside Glucose 99 70-90 mg/dl
[2017-09-03] MEDS ORDERED: SPRIN INH (14:28)
--- NOTE | 2017-09-03 14:30 | Discharge Summary ---
Discharge Summary Date of Service September 03, 2017. Discharge Summary Admission Date: September 02, 2017 at 16:07 Discharge Date: September 03, 2017 Discharge Disposition: Home Principal Diagnosis: Chest Pain Procedures: CXR Negative chest. ECHO: Normal LV chamber size and wall thickness. * Normal LV systolic function, EF 55-60%. * No segmental left ventricular wall motion abnormalities are noted. * Grade I diastolic dysfunction. * Aortic valve sclerosis mild, without significant aortic valvular stenosis. * Mild tricuspid regurgitation. Stress test: Nonischemic dobutamine stresss echocardiogram. * No arrhythmias. * Normal HR and BP response to exercise. Consultations: Cardiology Pending Studies/Follow-Up: Follow up with your PCP on 09/09/17 at 10:30AM Use inhaler regularly as advised Seek immediate medical attention if your symptoms reoccur or worsen Medication Reconciliation New Medications: Tiotropium [place] (Spiriva Handihaler) 5 Puff/90 Mcg Aerp 1 PUFF INH QAM for 30 Days, #1 EA 1 Refill Continued Medications: Aspirin (Aspirin Ec) 81 Mg Tab 81 MG PO DAILY Clopidogrel Bisulfate (Plavix) 75 Mg Tab 75 MG PO DAILY, TAB Colesevelam Hcl (Welchol) 625 Mg Tab 2 TAB PO DAILY, TAB Hctz/Losartan (Hyzaar 12.5MG/50MG) Tab 1 TAB PO DAILY, TAB Lorazepam (Ativan) 0.5 Mg Tab 0.5 MG PO HS, TAB Pravastatin (Pravachol ) 20 Mg Tab 20 MG PO DAILY, TAB Tamoxifen (Nolvadex) 20 Mg Tab 20 MG PO DAILY, TAB Admission Information HPI (per Admitting provider): Open dictation this is a 71-year-old female with a past medical history of peripheral vascular disease with chronic right subclavian stenosis and carotid steal syndrome, status post bilateral common iliac stenting Was seen at [facility] cardiology office today with complaint of chest pain/ chest heaviness ongoing for the past 1 day, with radiation to both associated with shortness of, dizziness spell, had diaphoresis, episode of nausea and vomiting. Reported she has been having this chest heaviness intermittently for the past few weeks, symptom will resolved after taking rest But the chest discomfort started since yesterday has been persistent Twelve-lead EKG showed ST-T wave changes in inferior and anterior leads She was sent to [facility] [place] ER for further evaluation Patient had a nuclear stress test on July 2015: Which was negative for stress- induced ischemia LV ejection fraction more than 70% In the ER patient continued to have chest heaviness, getting intermittent relief with sublingual nitro Refused to have a Nitropaste placed due to severe hypotensive episode in past Physical Exam (per Admitting): General Appearance: no apparent distress Head: normocephalic, atraumatic Eyes: normal inspection, PERRL, EOMI, sclerae normal Neck: no JVD, no carotid bruits, trachea midline Respiratory/Chest: chest non-tender, lungs clear, normal breath sounds, no respiratory distress Cardiovascular: regular rate, rhythm, no JVD, no murmur Abdomen/GI: normal bowel sounds, non tender, soft Extremities/Musculoskelatal: no calf tenderness, normal capillary refill, no pedal edema Neurologic/Psych: no motor/sensory deficits, alert, normal reflexes, oriented x 3 Skin: normal color, warm/dry, no rash Hospital Course Chest pain R/O ACS Negative Cardiac Enzymes EKG: Non specific ST-T changes Stress test: Negative, Official report pending Continue aspirin, Plavix, statin, losartan Appreciate Cardiology Input H/O Intolerance to SL Nitro in the past 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 [employer]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 smoking H/O Peripheral Vascular disease H/O R subclavian artery stenosis Continue aspirin, Plavix, statin HTN Stable Continue current medications HLP: Continue statin Ongoing Tobacco Abuse: Smoking cessation counseling H/O COPD: No signs of exacerbation Continue home inhalers Code Status: Full code DVT Px: SQ Heparin Disposition: Plan to discharge home today Follow up with your PCP on 09/09/17 at 10:30AM Use inhaler regularly as advised Seek immediate medical attention if your symptoms reoccur or worsen Total time spent on discharge = This includes examination of the patient, discharge planning, medication reconciliation, and communication with other providers. Discharge Instructions Discharge Instructions Date of Service September 03, 2017. Admission Reason for Admission: Chest Pain, Sob Discharge Discharge Diagnosis / Problem: Chest Pain Discharge Goals Goal(s): Decrease discomfort, Improve function Activity Recommendations Activity Limitations: resume your previous activity Exercise/Sports Limitations: as tolerated . Instructions / Follow-Up Instructions / Follow-Up Follow up with your PCP on 09/09/17 at 10:30AM Use inhaler regularly as advised Seek immediate medical attention if your symptoms reoccur or worsen Current Hospital Diet Patient's current hospital diet: AHA Diet (Heart Healthy) Discharge Diet Recommended Diet: AHA Diet (Heart Healthy) Pending Studies Studies pending at discharge: no Laboratory Results Lipid Panel Test 09/03/17 03:43 Range/Units Triglycerides Level 154 H 0-150 mg/dl Cholesterol Level 67 0-200 mg/dl HDL Cholesterol 15 mg/dl Cholesterol/HDL Ratio 4.5 LDL Cholesterol, Calculated 21 mg/dl Medical Emergencies . Who to Call and When: Medical Emergencies: If at any time you feel your situation is an emergency, please call 911 immediately. . Non-Emergent Contact Non-Emergency issues call your: Primary Care Provider Call Non-Emergent contact if: you have a fever, your pain is not controlled, your pain is worsening, your pain is unusual for you, your pain is concerning you, you have any medication questions Seek immediate medical attention if your symptoms reoccur or worsen . . "Provider Documentation" section prepared by Celso Tony. .
--- NOTE | 2017-09-03 15:41 | DOBUTAMINE ECHO ---
*NOTICE TO RECEIVING DEMOCRAT AGENCY This information is strictly Confidential and protected under [place] law. [place] law prohibits you from making any further disclosure of this information unless further disclosure is expressly permitted by the written consent of the person to whom it pertains or is authorized by law. A general authorization for the release of medical or other information is not sufficient for this purpose. Hospital accepts no responsibility if the information is made available to any other person, INCLUDING THE PATIENT. Interpretation Summary * Name: ELEN TREVIZO Study Date: 09/03/2017 08:21 AM BP: 155/81 mmHg * Patient Location: C.2T\S\S242\S\2 HR: 65 * : 1945 (M/d/yy) Gender: Female Height: 63 in * Age: 71 yrs Ethnicity: [place] Weight: 149 lb * Ordering Physician: Harpal Cardoso * Referring Physician: John Urias * Performed By: Jessica Larson RDCS * * Reason For Study: CHEST PAIN * BSA: 1.7 m2 * -- Conclusions -- * Nonischemic dobutamine stresss echocardiogram. * No arrhythmias. * Normal HR and BP response to exercise. Procedure Details * A contrast injection of Definity was performed to improve assessment of LV function. * Contrast was injected into an intravenous site in the left arm. * One vial of Definity ultrasound contrast was diluted in normal saline to a total volume of 10 ml. A total of '4' ml of solution was administered during imaging. * Lot # [id number] of Definity utilized for procedure. * Expiration date AUG 12. * The attending nurse who injected the contrast agent was DIVYA WARE RN. Stress Parameters * The stress portion of this study was personally supervised by the undersigned interpreting physician. * Rest heart rate was '65' BPM. * Rest blood pressure was '155/81' * Maximum heart rate achieved was 153 bpm. * Maximum heart rate was 103 % of maximum age-predicted heart rate. * Maximum blood pressure was '202/84' * Maximum Dobutamine infusion rate was '30' mcg/kg/min. * Dobutamine infusion was terminated due to achieving target heart rate * A total of 5 mg of IV Metoprolol was administered to reverse Dobutamine-induced tachycardia.
--- NOTE | 2017-09-03 15:41 | ECHOCARDIOGRAM REPORT ---
*NOTICE TO RECEIVING [employer]EN [employer] AGENCY This information is strictly Confidential and protected under [place] law. [place] law prohibits you from making any further disclosure of this information unless further disclosure is expressly permitted by the written consent of the person to whom it pertains or is authorized by law. A general authorization for the release of medical or other information is not sufficient for this purpose. Hospital accepts no responsibility if the information is made available to any other person, INCLUDING THE PATIENT. Interpretation Summary * Name: ELEN TREVIZO Study Date: 09/03/2017 06:24 AM BP: 115/68 mmHg * Patient Location: C.2T\S\S242\S\2 HR: 63 * : 1945 (M/d/yyy) Gender: Female Height: 63 in * Age: 71 yrs Ethnicity: [place] Weight: 151 lb * Ordering Physician: Trina Urbina * Referring Physician: John Urias * Performed By: Jessica Larson RDCS * * Reason For Study: CHEST PAIN * BSA: 1.7 m2 * -- Conclusions -- * Normal LV chamber size and wall thickness. * Normal LV systolic function, EF 55-60%. * No segmental left ventricular wall motion abnormalities are noted. * Grade I diastolic dysfunction. * Aortic valve sclerosis mild, without significant aortic valvular stenosis. * Mild tricuspid regurgitation. Procedure Details * Left Ventricle The left ventricle is normal in size. There is normal left ventricular wall thickness. Ejection Fraction = 55-60%. Left ventricular systolic function is normal. No segmental left ventricular wall motion abnormalities are noted. The left ventricular wall motion is normal. * Right Ventricle The right ventricular cavity size is normal (basal dimension <4.2 cm in right ventricular apical 4-chamber view). The right ventricular systolic function is normal as assessed by tricuspid annular plane systolic excursion (TAPSE) (normal >1.5 cm). * Atria The left atrial size is normal. Right atrial size is normal. No ASD detected; PFO is not assessed. * Mitral Valve The mitral valve is normal in structure and function. * Tricuspid Valve The tricuspid valve anatomy is normal. There is no tricuspid stenosis. There is mild tricuspid regurgitation. * Aortic Valve The aortic valve is trileaflet. Aortic valve sclerosis mild, without significant aortic valvular stenosis. There is no significant aortic regurgitation. * Pulmonic Valve The pulmonary valve is not well seen, but the Doppler examination is normal without significant regurgitation or stenosis. * Great Vessels The aortic root is normal size. * Pericardium/Pleural There is no pericardial effusion. * Left Ventricular Diastolic Function Grade I diastolic dysfunction, (abnormal relaxation pattern). * * MMode 2D Measurements and Calculations * IVSd 0.93 cm * IVSs 1.1 cm * * LVIDd 4.4 cm * LVIDs 3.3 cm * LVPWd 1.2 cm * LVPWs 1.6 cm * * IVS/LVPW 0.76 * FS 26.2 % * EDV(Teich) 90.0 ml * ESV(Teich) 43.6 ml * EF(Teich) 51.5 % * * EDV(cubed) 88.0 ml * ESV(cubed) 35.4 ml * EF(cubed) 59.8 % * % IVS thick 16.7 % * % LVPW thick 33.0 % * * LV mass(C)d 167.4 grams * LV mass(C)dI 97.5 grams/m\S\2 * LV mass(C)s 151.2 grams * LV mass(C)sI 88.1 grams/m\S\2 * * SV(Teich) 46.4 ml * SI(Teich) 27.0 ml/m\S\2 * SV(cubed) 52.6 ml * SI(cubed) 30.7 ml/m\S\2 * * Ao root diam 2.7 cm * Ao root area 5.8 cm\S\2 * LA dimension 3.2 cm * * LA/Ao 1.2 * * LVAd ap4 19.0 cm\S\2 * LVLd ap4 6.6 cm * EDV(MOD-sp4) 44.9 ml * EDV(sp4-el) 46.5 ml * LVAs ap4 11.7 cm\S\2 * LVLs ap4 5.6 cm * ESV(MOD-sp4) 21.0 ml * ESV(sp4-el) 20.4 ml * EF(MOD-sp4) 53.2 % * EF(sp4-el) 56.1 % * * LVAd ap2 23.1 cm\S\2 * LVLd ap2 7.0 cm * EDV(MOD-sp2) 62.9 ml * EDV(sp2-el) 64.7 ml * LVAs ap2 14.2 cm\S\2 * LVLs ap2 6.2 cm * ESV(MOD-sp2) 28.0 ml * ESV(sp2-el) 27.5 ml * EF(MOD-sp2) 55.6 % * EF(sp2-el) 57.5 % * * LVLd %diff 6.1 % * EDV(MOD-bp) 54.1 ml * LVLs %diff 9.5 % * ESV(MOD-bp) 25.3 ml * EF(MOD-bp) 53.1 % * * SV(MOD-sp4) 23.9 ml * SI(MOD-sp4) 13.9 ml/m\S\2 * * SV(MOD-sp2) 34.9 ml * SI(MOD-sp2) 20.4 ml/m\S\2 * * SV(MOD-bp) 28.7 ml * SI(MOD-bp) 16.7 ml/m\S\2 * * SV(sp4-el) 26.0 ml * SI(sp4-el) 15.2 ml/m\S\2 * * SV(sp2-el) 37.2 ml * SI(sp2-el) 21.7 ml/m\S\2 * * * Doppler Measurements and Calculations * MV E max mychal 72.5 cm/sec * MV A max mychal 94.9 cm/sec * * MV E/A 0.76 * * MV dec time 0.24 sec * * Ao V2 max 113.9 cm/sec * Ao max PG 5.2 mmHg * Ao max PG (full) 2.9 mmHg * * LV V1 max PG 2.3 mmHg * * LV V1 max 75.9 cm/sec * * TR max mychal 270.6 cm/sec * * *
[2017-09-03 16:33] VITALS: BP 123/72; PULSE 62; TEMP 36.5; O2SAT 96
[2017-09-04] MEDS ORDERED: TIOTROPIUM BROMIDE 5 PUFF/90 MCG INH INH SCH (09:00)
[2017-09-04] MEDS ORDERED: COLESEVELAM 625 MG TAB PO SCH (09:00)
== END 2017-09-03 16:51 | disposition home or self-care (01) ==
LOC: C.EDB 14:42 → C.2T 16:07 → ENRESERV 16:21
PROVIDERS: ADMIT Hospitalist; ATTEND Internal Medicine
DX: R07.9 Chest pain, unspecified (principal); I73.9 Peripheral vascular disease, unspecified; I70.8 Atherosclerosis of other arteries; I10 Essential (primary) hypertension; E78.5 Hyperlipidemia, unspecified; K21.9 Gastro-esophageal reflux disease without esophagitis; F17.210 Nicotine dependence, cigarettes, uncomplicated; Z90.710 Acquired absence of both cervix and uterus; Z90.49 Acquired absence of other specified parts of digestive tract; Z90.10 Acquired absence of unspecified breast and nipple; Z83.3 Family history of diabetes mellitus; Z82.49 Family history of ischemic heart disease and other diseases of the circulatory system; Z88.5 Allergy status to narcotic agent; Z88.1 Allergy status to other antibiotic agents; Z88.0 Allergy status to penicillin; Z88.8 Allergy status to other drugs, medicaments and biological substances; Z85.3 Personal history of malignant neoplasm of breast; Z79.82 Long term (current) use of aspirin; Z79.02 Long term (current) use of antithrombotics/antiplatelets; G45.8 Other transient cerebral ischemic attacks and related syndromes

== ENCOUNTER 2020-02-08 10:47 | Observation (INO) ==
--- OUTSIDE RECORDS SUMMARY | 2020-02-08 10:50 | External Medical Summary | Continuity of Care Document ---
:1945 Author Name Michel Montes Address Unavailable Unavailable , Care Team Providers Name Role Phone Jensen Sinclair M.D. Unavailable [email or web address] Cristina Infante M.D. Unavailable [email or web address], [place] Unavailable Unavailable Problems Hyperlipidemia (272.4) (E78.5) Chronic obstructive pulmonary disease (496) (J44.9) Hypertension (401.9) (I10) Atherosclerosis (440.9) (I70.90) Cough (786.2) (R05) Allergies and Adverse Reactions Codeine Derivatives (Allergy) Niaspan TBCR (Allergy) Penicillins (Allergy) Medications Losartan Potassium-HCTZ 50-12.5 MG Oral Tablet; TAKE 1 TABLET DAILY. Simon Christianson Start: 16-Dec-2011 Refills: 0 Metoprolol Tartrate 25 MG Oral Tablet; TAKE 1 TABLET TWICE D AILY. Refills: 0 Fish Oil CAPS Refills: 0 Symbicort 160-4.5 MCG/ACT Inhalation Aerosol; INHALE 2 PUFFS Twice daily Refills: 0 Pravastatin Sodium 40 MG Oral Tablet; TAKE 1 TABLET DAILY AT BEDTIME. Refills: 0 Welchol 625 MG Oral Tablet; TAKE 2 TABLETS TWICE DAILY Refills: 0 Spiriva HandiHaler CAPS Refills: 0 Omeprazole 20 MG Oral Capsule Delayed Release Refills: 0 Procedures Procedures not documented Immunizations Immunizations not documented Social History - Smoking Status Smokes tobacco daily Plan of Treatment Planned Observations Planned Goals not documented Results No Known Results Results not documented
--- OUTSIDE RECORDS SUMMARY | 2020-02-08 10:50 | External Medical Summary | Continuity of Care Document ---
:1945 Author Name Michel Montes Address Unavailable Unavailable , Care Team Providers Name Role Phone Jensen Sinclair M.D. Unavailable [email or web address] Cristina Infante M.D. Unavailable [email or web address], [place] Unavailable Unavailable Problems Cough (786.2) (R05) Atherosclerosis (440.9) (I70.90) Hypertension (401.9) (I10) Chronic obstructive pulmonary disease (496) (J44.9) Hyperlipidemia (272.4) (E78.5) Allergies and Adverse Reactions Codeine Derivatives (Allergy) Niaspan TBCR (Allergy) Penicillins (Allergy) Medications Metoprolol Tartrate 25 MG Oral Tablet; TAKE [...] MG Oral Capsule Delayed Release Refills: 0 Losartan Potassium-HCTZ 50-12.5 MG Oral Tablet; TAKE 1 TABLET DAILY. Simon Christianson Start: 16-Dec-2011 Refills: 0 Procedures Procedures not documented Immunizations Immunizations not documented Social History - Smoking Status Smokes tobacco daily Plan of Treatment Planned Observations Planned Goals not documented Results No Known Results Results not documented
[2020-02-08] MEDS ORDERED: KETOROLAC 30 MG/ML VIAL IV STA (11:10)
--- NOTE | 2020-02-08 11:13 | Emergency Department Note ---
History of Present Illness General Chief complaint: Arm Pain Stated complaint: PAIN IN RIGHT HAND GOING UP ARM INTO NECK Time Seen by Provider: 02/08/20 11:00 Source: patient History of Present Illness Provider complaint: Right arm pain Onset (ago): day(s) Location: upper extremity and right Radiation: neck Severity: moderate Pain Consistency: + constant Maximum Pain Intensity: 5 Quality: + sharp Exacerbated By: + movement Associated symptoms: + chest pain, + cough (Nonproductive for several months) and + other (Tingling in both the fingers of both hands); no fever/chills, no nausea/vomiting and no shortness of breath This is a 74-year-old female who presents with right arm and neck pain for the past 2 days. The patient describes it as a sharp pain. It is worse when she moves her neck backwards. It is associated with some tingling to the fingers of both hands. It started 2 nights ago in the right wrist and then radiated up into her neck. She also stated that she had some tingling to her right face. She denies any numbness to her arm or recent illness. She denies any fever, loss of taste or smell, shortness of breath, abdominal pain, vomiting or diarrhea. She does state that she has had a nonproductive cough for several months. She states that she has had chest pain which is unrelated to her arm pain. She describes it as a tightness across her chest. It lasts several minutes. No worsening factors. No associated difficulty breathing or diaphoresis or lightheadedness. She is not currently having any chest tightness. She denies any injury to her neck. Home Medications Home Medications Medication Instructions Recorded Confirmed Type aspirin 81 mg PO PM #0 09/02/17 02/08/20 History clopidogrel [Plavix] 75 mg PO PM #0 tab 09/02/17 02/08/20 History losartan-hydrochlorothiazide 1 tab PO PM #0 tab 09/02/17 02/08/20 History pravastatin [Pravachol] 20 mg PO PM #0 tab 09/02/17 02/08/20 History tamoxifen 20 mg PO PM #0 tab 09/02/17 02/08/20 History acetaminophen [Tylenol Extra 1,000 mg PO Q6H PRN 02/08/20 02/08/20 History Strength] atorvastatin 20 mg PO PM 02/08/20 02/08/20 History lisinopril 5 mg PO PM 02/08/20 02/08/20 History pantoprazole 20 mg PO PM 02/08/20 02/08/20 History Allergies Allergy/AdvReac Type Severity Reaction Status Date / Time morphine Allergy Mild UNSURE Verified 02/08/20 11:27 clarithromycin Allergy Unknown . Verified 02/08/20 11:27 codeine Allergy Unknown Verified 02/08/20 11:27 Penicillins Allergy Unknown Verified 02/08/20 11:27 nitroglycerin AdvReac Severe BP DROP Unverified 02/08/20 11:27 Past Med/Surg History Medical History (Updated 02/08/20 @ 16:22 by Patrick Bush MD) Anemia Asthma Breast cancer GERD (gastroesophageal reflux disease) Hypertension PAD (peripheral artery disease) Subclavian artery stenosis, right Tobacco use disorder Surgical History H/O mastectomy H/O: hysterectomy History of cholecystectomy History of endoscopy Hx of cholecystectomy S/P insertion of iliac artery stent bilateral, 2016 Family History Mother Heart disease Other Breast cancer Social History Smoking Status: Current every day smoker Tobacco Type: Cigarettes packs per day: 1; Cigarettes Per Day: 1 ppd; Second Hand Exposure: No; Do You Dip or Chew Tobacco: No; Tobacco Cessation Education Requested by Patient: No Hx Alcohol Use: No Hx Substance Use: No Preferred Language: Togolese Communication Ability: Effective Optician Apprentice Dispensing Required: No Beliefs That Will Affect Care: None Current Living Situation: Spouse Other Information That Helps Us Care for You: No Feels Safe at Home: Yes Safety Concerns: Feels Safe At This Time Assistive Devices: Denture - Upper, Denture - Lower and Glasses Review of Systems See HPI for pertinent positives & negatives. and A total of 10 systems reviewed and were otherwise negative Physical Exam Vital Signs Vital Signs - 24 hr 02/08/20 10:55 02/08/20 12:40 02/08/20 14:29 Temperature 37.1 C Temperature Source Oral Pulse Rate 69 Pulse Rate [Left Finger] 62 75 Respiratory Rate 18 20 20 Respiratory Depth Normal Blood Pressure 175/75 H Blood Pressure [Left Arm] 145/80 H 140/61 Blood Pressure Mean 108 Blood Pressure Mean [Left Arm] 101 87 Blood Pressure Position Sitting Pulse Oximetry 97 96 96 Oxygen Delivery Method Room Air Sepsis Recent Fever Within 48 Hours No Sepsis New/Unexplained Change in Mental Status N/A Sepsis Action Taken by Nursing No Action Required Constitutional: Vital signs reviewed. Eyes: Pupils are equal round reactive to light. Conjunctiva are noninjected. ENT: Pharynx is clear without erythema or exudate. Mucous membranes are moist. Neck supple without meningeal signs. No midline tenderness to the cervical spine. Respiratory: Clear to auscultation bilaterally. Breath sounds are equal bilaterally. Cardiovascular: Regular rate and rhythm. No rubs or gallops. GI: Soft, nondistended and nontender. Bowel sounds are present. Musculoskeletal: No peripheral edema. No lower extremity tenderness. Integumentary: No cyanosis. or jaundice. Neurological: The patient is awake and alert. No focal deficits. Motor and se nsation intact in the upper extremities. Positive Spurling sign. Psychiatric: Normal affect. Not anxious appearing. Course Administered Medications Discontinued Medications Ketorolac Tromethamine (Ketorolac 30 Mg/Ml Vial) 10 mg IV NOW STA Stop: 02/08/20 11:11 Last Admin: 02/08/20 11:55 Dose: 10 mg Documented by: [id number] Medical Decision Making Differential Diagnosis Cervical disc disease, cervical radiculopathy, DVT, unstable angina, SC Medical Records Attestation: I reviewed the patient's medical records. The patient was admitted for chest pain in 2018. She had a negative dobutamine stress test at that time. Home Medications Current Medication List: was personally reviewed by me Laboratory Data Attestation: I reviewed the patient's lab results. Result diagrams: 02/08/20 11:39 02/08/20 11:39 Lab Results 02/08/20 02/08/20 02/08/20 Range/Units 11:39 11:39 11:39 WBC 8.60 (4.8-10.8) K/uL RBC 4.35 (4.2-5.4) M/uL Hgb 13.9 (12.0-16.0) g/dL Hct 39.8 (37-47) % MCV 91.5 (80-100) fL MCH 32.0 (25-34) pg MCHC 34.9 (32-36) g/dL RDW Std Deviation 43.0 (36.4-46.3) fL RDW Coeff of Layla 12.7 (11.5-14.5) % Plt Count 212 (130-400) K/uL MPV 11.6 H (7.4-10.4) fL Immature Gran % (Auto) 0.1 % Neut % (Auto) 64.3 % Lymph % (Auto) 20.8 % Winston % (Auto) 7.7 % Eos % (Auto) 6.4 % Baso % (Auto) 0.7 % Neut # (Auto) 5.53 (1.4-6.5) K/uL Lymph # (Auto) 1.79 (1.2-3.4) K/uL Winston # (Auto) 0.66 H (0.11-0.59) K/uL Eos # (Auto) 0.55 H (0-0.5) K/uL Baso # (Auto) 0.06 (0-0.2) K/uL Immature Gran # (Auto) 0.01 (0.00-0.02) K/uL PT 10.9 (9.0-12.0) Seconds INR 1.0 (0.9-1.1) APTT 24.2 (21.0-31.0) Seconds PTT Ratio 0.9 Sodium 141 (136-145) mmol/L Potassium 3.6 (3.5-5.1) mmol/L Chloride 110 H (98-107) mmol/L Carbon Dioxide 27 (21-32) mmol/L Anion Gap 4.0 (3-11) BUN 12 (7-18) mg/dl Creatinine 0.77 (0.6-1.2) mg/dl Est Cr Clr Drug Dosing 56.4 ml/min Est GFR ( Amer) 87.5 Est GFR (Non-Af Amer) 75.5 BUN/Creatinine Ratio 15.2 (10-20) Glucose 96 (70-99) mg/dl Calcium 9.2 (8.5-10.1) mg/dl Total Bilirubin 0.5 (0.2-1) mg/dl AST 11 L (15-37) U/L ALT 16 (12-78) U/L Alkaline Phosphatase 36 L (45-117) U/L Troponin I < 0.015 (0-0.045) ng/ml Total Protein 6.5 (6.4-8.2) gm/dl Albumin 3.5 (3.4-5.0) gm/dl Globulin 3.0 (2.5-4.0) gm/dl Albumin/Globulin Ratio 1.2 (0.9-2) Imaging Data Radiologist's Impression: RIGHT UPPER EXTREMITY VENOUS DOPPLER ULTRASOUND CLINICAL HISTORY: Right upper extremity pain. Evaluate for deep venous thrombus. COMPARISON STUDY: No previous studies for comparison. TECHNIQUE: Sonography of the deep venous system of the right upper tract was performed FINDINGS: The right internal jugular, subclavian, axillary, brachial, radial, ulnar, cephalic and basilic veins were patent. No deep venous thrombus within the right upper extremity was identified. IMPRESSION: No deep venous thrombus within the right upper extremity. ACT 112: Negative or not required by law. Electronically signed by: Lopez Christianson M.D. 02/08/2020 12:39 PM XR chest 1V not portable HISTORY: Atypical Chest Pain COMPARISON: Chest 09/02/2017. FINDINGS: The lungs are clear. No pleural effusions. No pneumothorax. The heart is normal in size. Small retrocardiac density favors a hiatus hernia. This remains unchanged. Surgical clips within the right upper quadrant likely representing a prior cholecystectomy. IMPRESSION: No significant change compared to the prior study. No acute process. ACT 112: Negative or not required by law. Electronically signed by: Ramana Ritter M.D. 02/08/2020 1:08 PM Dictated: 02/08/20 1306 Transcribed: 02/08/20 1306 CERVICAL SPINE 5 VIEWS HISTORY: Neck pain right side eval for fx/disc space COMPARISON: Cervical spine 07/30/2009. Cervical spine CT 05/26/2015. FINDINGS: The cervical spine is visualized from C1 through C7. There is no fracture. No subluxation. Moderate disc space narrowing at C2-C3, C3-C4, C4-C5, C5-C6. Moderate facet degenerative changes throughout the cervical spine most pronounced at the C6-C7 levels. There is mild to moderate bilateral neural foraminal narrowing from C3 through C7 most pronounced at the C5-C6 and C6-C7 levels. Prevertebral soft tissues and the atlantodens interval are intact. IMPRESSION: No fracture or subluxation within the cervical spine. Moderate degenerative changes as described above. This is similar to the prior CT examination. ACT 112: Negative or not required by law. Electronically signed by: Ramana Ritter M.D. 02/08/2020 1:14 PM Dictated: 02/08/201309 Transcribed: 02/08/201309 ECG Data Attestation: I personally reviewed and interpreted this ECG as follows: Indication: + chest pain Rate (beats per minute): 69 Rhythm: + normal sinus ECG [place]: + Normal ECG ST segments: no ST elevation ECG Findings: no PVCs MDM Narrative I did evaluate the patient as noted above. The patient is presenting with right arm pain for the past 2 days but when asked she stated that she has been having chest tightness for the past 2 days as well. She tells me that she has a partially blocked artery on the right side of her heart according to her doctors. She does, however, deny ever having a cardiac catheterization. It is unclear how she knows this without the catheterization. Her arm pain radiates into her neck and seems most consistent with a cervical radiculopathy. She has a positive Spurling sign. She has paresthesias in both of her hands. She did also note some right facial paresthesias. IV access was established. I did place an order for continuous cardiac monitoring. The monitor showed normal sinus rhythm at a rate of 72 bpm. I did order and personally review the patient's 12-lead EKG as described above. She has no acute ischemic changes. I did order and personally reviewed the images of the patient's chest and cervical spine x-rays as described above. There is no fracture or dislocation. She does have moderate degenerative changes. Her chest x-ray is unremarkable. I did order and review the patient's blood work as noted in the electronic medical record. CBC does not demonstrate leukocytosis or anemia. Her electrolytes are unremarkable. Troponin is negative. I did order a Doppler ultrasound of the right arm. I did review the images myself as well as the radiology report as described above. There is no evidence of DVT. I did reevaluate the patient. I did treat her with Toradol 10 mg IV after which she stated she felt somewhat better. I did discuss the test results with the patient. She last had her chest tightness this morning. She is currently not having any. She did state that she took her aspirin today. I did recommend hospitalization for further evaluation of her chest discomfort and arm pain. I did discuss case with the hospitalist and case assistant. Impression & Plan Chest pain, Cervical disc disease Discharge Plan Visit Data Chief Complaint: Arm Pain Stated Complaint: PAIN IN RIGHT HAND GOING UP ARM INTO NECK ED Provider: Patrick Bush Discharge Problem: Chest pain, Cervical disc disease Patient Disposition: Admitted As Inpatient Discharge Instructions Interventions: ED Discharge Assessment Last Done: 02/08/20 15:26
[2020-02-08 11:53] LABS: Basophils # (auto) 0.06 K/uL (0-0.2); Basophils % (auto) 0.7 %; Eosinophils # (auto) 0.55 K/uL (0-0.5); Eosinophils % (auto) 6.4 %; Hematocrit (blood only) 39.8 % (37-47); Hemoglobin 13.9 g/dL (12.0-16.0); Immature Granulocytes # (auto) 0.01 K/uL (0.00-0.02); Immature Granulocytes % (auto) 0.1 %; Lymphocytes # (auto) 1.79 K/uL (1.2-3.4); Lymphocytes % (auto) 20.8 %; Mean Corpuscular Hgb Conc 34.9 g/dL (32-36); Mean Corpuscular Volume 91.5 fL (80-100); Mean Platelet Volume 11.6 fL (7.4-10.4); Monocytes # (auto) 0.66 K/uL (0.11-0.59); Monocytes % (auto) 7.7 %; Neutrophils # (auto) 5.53 K/uL (1.4-6.5); Neutrophils % (auto) 64.3 %; Platelet Count 212 K/uL (130-400); RDW Coefficient of Variation 12.7 % (11.5-14.5); Red Blood Count 4.35 M/uL (4.2-5.4)
[2020-02-08 12:06] LABS: Partial Thromboplastin Ratio 0.9; Partial Thromboplastin Time 24.2 Seconds (21.0-31.0); Prothrombin Time 10.9 Seconds (9.0-12.0)
[2020-02-08 12:22] LABS: Alanine Aminotransferase 16 U/L (12-78); Albumin Level 3.5 gm/dl (3.4-5.0); Aspartate Aminotransferase 11 U/L (15-37); BUN Creatinine Ratio 15.2 (10-20); Blood Urea Nitrogen 12 mg/dl (7-18); Calcium 9.2 mg/dl (8.5-10.1); Carbon Dioxide 27 mmol/L (21-32); Chloride 110 mmol/L (98-107); Creatinine Clr Calc Pharmacy 56.4 ml/min; Est GFR (African American) 87.5; Est GFR (Non-African American) 75.5; Glucose 96 mg/dl (70-99); Potassium 3.6 mmol/L (3.5-5.1); Sodium 141 mmol/L (136-145)
[2020-02-08 12:27] LABS: Albumin Globulin Ratio 1.2 (0.9-2); Alkaline Phosphatase 36 U/L (45-117); Bilirubin,Total 0.5 mg/dl (0.2-1); Total Protein 6.5 gm/dl (6.4-8.2); Troponin I < 0.015 ng/ml (0-0.045)
--- NOTE | 2020-02-08 12:40 | Ultrasound Report ---
RIGHT UPPER EXTREMITY VENOUS DOPPLER ULTRASOUND CLINICAL HISTORY: Right upper extremity pain. Evaluate for deep venous thrombus. COMPARISON STUDY: No previous studies for comparison. TECHNIQUE: Sonography of the deep venous system of the right upper tract was performed FINDINGS: The right internal jugular, subclavian, axillary, brachial, radial, ulnar, cephalic and bas ilic veins were patent. No deep venous thrombus within the right upper extremity was identified. IMPRESSION: No deep venous thrombus within the right upper extremity. ACT 112: Negative or not required by law. Electronically signed by: Lopez Christianson M.D. 02/08/2020 12:39 PM
--- NOTE | 2020-02-08 13:09 | XRay Report ---
XR chest 1V not portable HISTORY: Atypical Chest Pain COMPARISON: Chest 09/02/2017. FINDINGS: The lungs are clear. No pleural effusions. No pneumothorax. The heart is normal in size. Sm all retrocardiac density favors a hiatus hernia. This remains unchanged. Surgical clips within the ri ght upper quadrant likely representing a prior cholecystectomy. IMPRESSION: No significant change compared to the prior study. No acute process. ACT 112: Negative or not required by law. Electronically signed by: Ramana Ritter M.D. 02/08/2020 1:08 PM
--- NOTE | 2020-02-08 13:15 | XRay Report ---
CERVICAL SPINE 5 VIEWS HISTORY: Neck pain right side eval for fx/disc space COMPARISON: Cervical spine 07/30/2009. Cervical spine CT 05/26/2015. FINDINGS: The cervical spine is visualized from C1 through C7. There is no fracture. No subluxation. Moderate disc space narrowing at C2-C3, C3-C4, C4-C5, C5-C6. Moderate facet degenerative changes thr oughout the cervical spine most pronounced at the C6-C7 levels. There is mild to moderate bilateral n eural foraminal narrowing from C3 through C7 most pronounced at the C5-C6 and C6-C7 levels. Preverteb ral soft tissues and the atlantodens interval are intact. IMPRESSION: No fracture or subluxation within the cervical spine. Moderate degenerative changes as described michelle e. This is similar to the prior CT examination. ACT 112: Negative or not required by law. Electronically signed by: Ramana Ritter M.D. 02/08/2020 1:14 PM
--- NOTE | 2020-02-08 14:43 | History & Physical Report ---
Date of Service February 08, 2020 Assessment & Plan (1) Chest tightness: (2) Right arm pain: This is a 74-year-old female with PMH of PAD s/p bilateral iliac artery stent placement in 2016, chronic right subclavian stenosis and carotid steal syndrome, tobacco use disorder with 40+ pack years, hypertension, GERD, history of breast cancer on tamoxifen and other medical problems as a below who presents with intermittent chest tightness over the past 2 days. -Atypical intermittent chest tightness that resolved after Toradol. Continues to have intermittent R arm pain and paresthesias of R fingers in setting of known PAD and cervical spine degenerative disease -RUE pain multifactorial in setting of known R subclavian stenosis and carotid steal syndrome, moderate cervical degenerative changes and presumed CAD -Follows with [facility] cardiology with presumed underlying CAD but no prior cardiac catheterization. Negative dobutamine stress echo in September 2018 -Work up so far: EKG with NSR, initial troponin normal, CXR with no significant change compared to the prior study, venous doppler study without DVT within the RUE, C spine XR with moderate degenerative changes as described above -Monitor on telemetry, trend troponin, 2D echo ordered -If second troponin negative, will obtain CTA upper extremity and chest due to significant underlying vascular disease -NPO for possible stress test in AM, routine cardiology consult (3) Subclavian artery stenosis, right: (4) PAD (peripheral artery disease): S/p bilateral iliac artery stent placement in 2016, chronic right subclavian stenosis and carotid steal syndrome -Continue aspirin, statin, plavix (5) Hypertension: Normotensive. Continue losartan-hctz, lisinopril. Must check BP on L arm for accurate reading (6) Tobacco use disorder: Cessation strongly recommended (7) Breast cancer: History of mastectomy and chemotherapy. Currently on tamoxifen. Follows with Dr. Knox of heme-onc DVT Ppx: SQ heparin Code status: FULL PCP: Lopez Dispo: Observation telemetry. Plan to return home once medically stable. Patient seen in collaboration with Dr. Erazo. Please see addendum. History of Present Illness Chief Complaint: Chest tightness Primary Care Provider: Lee Marroquin MD This is a 74-year-old female with PMH of PAD s/p bilateral iliac artery stent placement in 2016, chronic right subclavian stenosis and carotid steal syndrome, tobacco use disorder with 40+ pack years, hypertension, GERD, history of breast cancer on tamoxifen and other medical problems as a below who presents with intermittent chest tightness over the past 2 days. Endorses tight feeling across chest over the past few days and with waking this morning that lasts for a few moments and then resolves. Associated with R arm pain with tingling in fingers of right hand. Arm pain is worse with movement of neck. States that pain in arm is intermittent but was severe enough this morning that she had difficulty eating with her dominant hand. Since arrival to the ED, patient was given Toradol with complete resolution of pain. Follows with [facility] cardiology for diffuse vascular disease and presumed underlying CAD but no prior cardiac catheterization. Negative dobutamine stress echo in September 2018. Has his tory of peripheral artery disease with bilateral iliac artery stent placement in 2015 as well as chronic right subclavian stenosis and carotid steal syndrome. Was due to follow-up with vascular service in [place] in November 2019 but did not go to appointment. Patient is on aspirin, Plavix and statin. Currently feeling asymptomatic except for intermittent aching pain of R arm. Denies any fever, chills, lightheadedness, headache, palpitations, wheezing, nausea, vomiting, abdominal pain, dysuria, diarrhea or constipation. Does endorse chronic cough that is unchanged. No known sick contacts. Allergies Allergy/AdvReac Type Severity Reaction Status Date / Time morphine Allergy Mild UNSURE Verified 02/08/20 11:27 clarithromycin Allergy Unknown . Verified 02/08/20 11:27 codeine Allergy Unknown Verified 02/08/20 11:27 Penicillins Allergy Unknown Verified 02/08/20 11:27 nitroglycerin AdvReac Severe BP DROP Unverified 02/08/20 11:27 Home Medications Home Medications Medication Instructions Recorded Confirmed Type aspirin 81 mg PO PM #0 09/02/17 02/08/20 History clopidogrel [Plavix] 75 mg PO PM #0 tab 09/02/17 02/08/20 History losartan-hydrochlorothiazide 1 tab PO PM #0 tab 09/02/17 02/08/20 History tamoxifen 20 mg PO PM #0 tab 09/02/17 02/08/20 History acetaminophen [Tylenol Extra 1,000 mg PO Q6H PRN 02/08/20 02/08/20 History Strength] atorvastatin 20 mg PO PM 02/08/20 02/08/20 History lisinopril 5 mg PO PM 02/08/20 02/08/20 History pantoprazole 20 mg PO PM 02/08/20 02/08/20 History Past Med/Surg History Medical History Anemia Asthma Breast cancer GERD (gastroesophageal reflux disease) Hypertension PAD (peripheral artery disease) Subclavian artery stenosis, right Tobacco use disorder Surgical History H/O mastectomy H/O: hysterectomy History of cholecystectomy History of endoscopy Hx of cholecystectomy S/P insertion of iliac artery stent bilateral, 2016 Family History Mother Heart disease Other Breast cancer Social History Smoking Status: Current every day smoker Tobacco Type: Cigarettes packs per day: 1; Cigarettes Per Day: 1 ppd; Second Hand Exposure: No; Do You Dip or Chew Tobacco: No; Tobacco Cessation Education Requested by Patient: No Hx Alcohol Use: No Hx Substance Use: No Preferred Language: Citizen Of [place] Communication Ability: Effective 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 Physical Exam Physical Exam: General Appearance: WD/WN, vitals as above, NAD, sitting up in bed, pleasant, conversing easily, appears older than stated age Head: normocephalic, atraumatic Eyes: normal inspection, PERRL, conjunctivae normal, anicteric sclerae ENT: external ear and nose normal, oropharynx normal Neck: normal visual inspection, trachea midline, no thyromegaly Respiratory: normal respiratory effort, lungs clear to auscultation, no wheeze, rales, rhonchi. No accessory muscle use Cardiovascular: regular rate, rhythm, no murmur appreciated, diminished but palpable R radial pulse, hand is warm. 2+ L radial pulse. Cap refill intact bilaterally. Vessels: no JVD Chest: normal inspection of chest Abdomen/GI: normal bowel sounds, soft, nontender, no hepatosplenomegaly Extremities/Musculoskeletal: no cyanosis or clubbing, extremities motor streng th 08/28 Neurologic: PERRL, EOMI, accommodation nl, no face palsy, no dysarthria, CN's II-XI intact bilaterally and moves all extremities Psychiatric: A+Ox3, euthymic affect Skin: no rashes, normal color, warm/dry Results & Data Results & Data ([facility]) Vital Signs (Past 12 Hours) Vital Signs Temp Pulse Pulse Resp BP BP Pulse Ox 02/08/20 14:29 75 20 140/61 96 02/08/20 12:40 62 20 145/80 H 96 02/08/20 10:55 37.1 C 69 18 175/75 H 97 Laboratory Results Short CBC 02/08/20 Range/Units 11:39 WBC 8.60 (4.8-10.8) K/uL Hgb 13.9 (12.0-16.0) g/dL Hct 39.8 (37-47) % Plt Count 212 (130-400) K/uL BMP 02/08/20 11:39 Sodium 141 Potassium 3.6 Chloride 110 H Carbon Dioxide 27 BUN 12 Creatinine 0.77 Glucose 96 Calcium 9.2 Cardiac Enzymes 02/08/20 Range/Units 11:39 Troponin I < 0.015 (0-0.045) ng/ml Liver Function 02/08/20 Range/Units 11:39 Total Bilirubin 0.5 (0.2-1) mg/dl AST 11 L (15-37) U/L ALT 16 (12-78) U/L Alkaline Phosphatase 36 L (45-117) U/L Albumin 3.5 (3.4-5.0) gm/dl Diagnostic Findings Cervical spine XR: IMPRESSION: No fracture or subluxation within the cervical spine. Moderate degenerative changes as described above. This is similar to the prior CT examination. CXR: IMPRESSION:No significant change compared to the prior study. No acute process. Venous doppler study: IMPRESSION: No deep venous thrombus within the right upper extremity. ECG Rhythm: normal sinus Change: no significant change Code Status & VTE Plan VTE Prophylaxis Plan VTE Prophylaxis will be ordered: Yes Supervising Physician Co-Signing Physician Notes I saw this patient with the physician medical record assistant, I participated in the history, physical, review of systems, and physical exam. I reviewed the medications with the patient and the physician medical record assistant and helped reconcile the medications. I helped take a detailed family and social history as well. I formulated the assessment and plan personally with the physician medical record assistant and went over it with the patient. Physical Exam Gen-AAO x 3, NAD, Afebrile Head-NCAT, EOMI, PERRLA, Anicteric Sclera, No Posterior Pharyngeal Erythema Neck-Supple, No JVD, No Thyromegaly, No Masses, No LAD, No Bruits Lungs-Clear to Auscultation Bilaterally, No Rales, No Rhonchi, No Wheezing, No Crepitus Chest-No S4, +S1, +S2, No S3, No Murmurs, No Rubs, No Gallops, No Ectopy Abdomen-Soft, Bowel Sounds Present, Non Tender, Non Distended, No Hepatomegaly, No Splenomegaly, No Palpable Masses, No Rebound, No Rigidity, No Guarding Musculoskeletal-Full Range of Motion Bilaterally, No CVAT Extremities-No Cyanosis, No Clubbing, No Edema Nuero-Cranial Nerves II-XII grossly intact, Motor WNL, DTRs WNL, Strength WNL, Non Focal Psych-Normal Mood
[2020-02-08] MEDS ORDERED: POLYETHYLENE (MIRALAX) 17 GM PACK PO PRN (15:51)
[2020-02-08] MEDS ORDERED: ACETAMINOPHEN 325 MG TAB PO PRN (15:51)
[2020-02-08] MEDS ORDERED: ONDANSETRON INJ 2 MG/ML 2 ML VIAL IV PRN (15:51)
[2020-02-08] MEDS ORDERED: ACETAMINOPHEN 500 MG TAB PO PRN (16:30)
--- NOTE | 2020-02-08 18:10 | Cardiology Consultation ---
Date of Consultation February 08, 2020 Assessment & Plan (1) Chest pain: (2) Right arm pain: 74-year-old patient with a history of cigarette smoking, peripheral arterial disease including right subclavian stenosis with mild chronic symptoms presents with right arm pain, described as paresthesias, as well as right neck pain and associated chest pressure. EKG negative x1 troponin undetectable x2. Continue observation. Cervical radiculopathy symptoms may very well be the culprit. We will plan on resting echo tomorrow with further advice to follow.. History of Present Illness Attending Physician: Brian Erazo DO History of Present Illness Amanda Jeter is a 74-year-old female seen in cardiology consultation per the request of Bonnie Garcia PA-C for the evaluation of chest, neck, and arm pain. Patient describes waxing and waning severe pain in her right neck, paresthesias sensation down her right arm, as well as a vague associated chest pressure. At the time of my assessment, she had been transferred from the emergency department to the PCU, she was starting to eat her evening meal, and she is feeling much improved. She follows with Dr. Urias and Harper Keenan PA-C of our practice on an outpatient basis. Problem list: 1.Significant generalized atherosclerosis. 2.Atherosclerotic peripheral vascular disease with chronic right subclavian stenosis and carotid steal syndrome. 3.Status post kissing common iliac stenting, bilateral, for bilateral lower claudication, September of 2015. 4.Hypertension. 5.Hyperlipidemia. 6.Chronic tobacco use. 7.Presumed coronary atherosclerosis with negative nuclear stress test in 2015, negative dobutamine stress 08/2017, negative dobutamine stress echo 10/06/2018 8. Breast carcinoma for which she underwent bilateral mastectomy, 6 cycles of TAC chemotherapy, ongoing tamoxifen therapy Allergies Allergy/AdvReac Type Severity Reaction Status Date / Time morphine Allergy Mild UNSURE Verified 02/08/20 11:27 clarithromycin Allergy Unknown . Verified 02/08/20 11:27 codeine Allergy Unknown Verified 02/08/20 11:27 Penicillins Allergy Unknown Verified 02/08/20 11:27 nitroglycerin AdvReac Severe BP DROP Unverified 02/08/20 11:27 Home Medications Home Medications Medication Instructions Recorded Confirmed Type aspirin 81 mg PO PM #0 09/02/17 02/08/20 History clopidogrel [Plavix] 75 mg PO PM #0 tab 09/02/17 02/08/20 History losartan-hydrochlorothiazide 1 tab PO PM #0 tab 09/02/17 02/08/20 History tamoxifen 20 mg PO PM #0 tab 09/02/17 02/08/20 History acetaminophen [Tylenol Extra 1,000 mg PO Q6H PRN 02/08/20 02/08/20 History Strength] atorvastatin 20 mg PO PM 02/08/20 02/08/20 History lisinopril 5 mg PO PM 02/08/20 02/08/20 History pantoprazole 20 mg PO PM 02/08/20 02/08/20 History Patient History Medical History Anemia Asthma Breast cancer GERD (gastroesophageal reflux disease) Hypertension PAD (peripheral artery disease) Subclavian artery stenosis, right Tobacco use disorder Surgical History H/O mastectomy H/O: hysterectomy History of cholecystectomy History of endoscopy Hx of cholecystectomy S/P insertion of iliac artery stent bilateral, 2016 Family History Mother Heart disease Other Breast cancer Social History Smoking Status: Current every day smoker Tobacco Type: Cigarettes packs per day: 1; Cigarettes Per Day: 1 ppd; Second Hand Exposure: No; Do You Dip or Chew Tobacco: No; Tobacco Cessation Education Requested by Patient: No Hx Alcohol Use: No Hx Substance Use: No Preferred Language: French Communication Ability: Effective 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: No Beliefs That Will Affect Care: None Current Living Situation: Spouse Other Information That Helps Us Care for You: No Feels Safe at Home: Yes Safety Concerns: Feels Safe At This Time Assistive Devices: Denture - Upper, Denture - Lower and Glasses Review of Systems Review of Systems: All systems reviewed & are unremarkable except as noted in HPI & below Physical Exam Physical Exam: Temp Pulse Resp BP Pulse Ox 36.7 C 65 18 136/66 97 02/08/20 16:05 02/08/20 16:05 02/08/20 16:05 02/08/20 16:05 02/08/20 16:05 Constitutional: WD/WN, vitals as above Neck: No carotid bruits Respiratory: normal respiratory effort, lungs clear to auscultation Cardiovascular: RRR, no murmur, no edema Gastrointestinal (Abdomen): normal bowel sounds, soft, nontender, no hepatosplenomegaly Neurologic: PERRL, EOMI, accommodation nl, no face palsy, no dysarthria Results & Data ([facility]) Vital Signs (Past 12 Hours) Vital Signs Temp Pulse Pulse Resp BP BP Pulse Ox 02/08/20 16:05 36.7 C 65 18 136/66 97 02/08/20 14:29 75 20 140/61 96 02/08/20 12:40 62 20 145/80 H 96 02/08/20 10:55 37.1 C 69 18 175/75 H 97 Laboratory Results Cardiac Enzymes 02/08/20 02/08/20 Range/Units 11:39 17:26 AST 11 L (15-37) U/L Troponin I < 0.015 < 0.015 (0-0.045) ng/ml Coagulation 02/08/20 Range/Units 11:39 PT 10.9 (9.0-12.0) Seconds APTT 24.2 (21.0-31.0) Seconds CBC 02/08/20 Range/Units 11:39 WBC 8.60 (4.8-10.8) K/uL RBC 4.35 (4.2-5.4) M/uL Hgb 13.9 (12.0-16.0) g/dL Hct 39.8 (37-47) % Plt Count 212 (130-400) K/uL Neut # (Auto) 5.53 (1.4-6.5) K/uL Lymph # (Auto) 1.79 (1.2-3.4) K/uL [place] # (Auto) 0.66 H (0.11-0.59) K/uL Eos # (Auto) 0.55 H (0-0.5) K/uL Baso # (Auto) 0.06 (0-0.2) K/uL Comprehensive Metabolic Panel 02/08/20 Range/Units 11:39 Sodium 141 (136-145) mmol/L Potassium 3.6 (3.5-5.1) mmol/L Chloride 110 H (98-107) mmol/L Carbon Dioxide 27 (21-32) mmol/L BUN 12 (7-18) mg/dl Creatinine 0.77 (0.6-1.2) mg/dl Glucose 96 (70-99) mg/dl Calcium 9.2 (8.5-10.1) mg/dl AST 11 L (15-37) U/L ALT 16 (12-78) U/L Alkaline Phosphatase 36 L (45-117) U/L Total Protein 6.5 (6.4-8.2) gm/dl Albumin 3.5 (3.4-5.0) gm/dl Intake and Output 02/08/20 02/08/20 02/08/20 06:59 14:59 22:59 Other: Weight 66.3 kg 72 kg Weight Measurement Method Chair Scale Built in [facility] Patient Weight 02/09/20 06:59 Weight 72 kg Diagnostic Findings EKG performed today 02/08/2020 at 11:17 AM revealed sinus rhythm at 69 bpm, normal EKG. (1) Chest pain Chest pain type: unspecified Qualified Code(s): R07.9 - Chest pain, unspecified
[2020-02-08] MEDS ORDERED: lisinopril 5 MG TAB PO SCH (21:00)
[2020-02-08] MEDS ORDERED: PRAVASTATIN SOD 20 MG TAB PO SCH (21:00)
[2020-02-08] MEDS ORDERED: ATORVASTATIN 20 MG TAB PO SCH (21:00)
[2020-02-08] MEDS ORDERED: CLOPIDOGREL BISULFATE 75 MG TAB PO SCH (21:00)
[2020-02-08] MEDS ORDERED: LOSARTAN/HCTZ 50/12.5MG TAB PO SCH (21:00)
[2020-02-08] MEDS ORDERED: PANTOprazole 40 MG TAB PO SCH (21:00)
[2020-02-08] MEDS ORDERED: TAMOXIFEN CITRATE 10 MG TABLET PO SCH (21:00)
[2020-02-08] MEDS ORDERED: ASPIRIN 81 MG ECTAB PO SCH (21:00)
[2020-02-08] MEDS: HEPARIN SOD 5,000 UNIT/0.5 ML VIAL SQ SCH (22:06)
--- NOTE | 2020-02-09 05:54 | Electrocardiogram Report ---
Test Reason : Blood Pressure : / mmHG Vent. Rate : 069 BPM Atrial Rate : 069 BPM P-R Int : 154 ms QRS Dur : 080 ms QT Int : 434 ms P-R-T Axes : 071 073 068 degrees QTc Int : 465 ms Normal sinus rhythm Normal ECG When compared with ECG of 03-SEP-2017 06:22, No significant change was found Confirmed by Sammy Bowens ([id number]) on 02/09/2020 5:53:58 AM Referred By: REFERRED SELF Confirmed By:Sammy Bowens
[2020-02-09] MEDS: HEPARIN SOD 5,000 UNIT/0.5 ML VIAL SQ SCH ×2 (07:01→13:55)
[2020-02-09 07:23] LABS: Hematocrit (blood only) 37.1 % (37-47); Hemoglobin 12.8 g/dL (12.0-16.0); Mean Corpuscular Hemoglobin 31.9 pg (25-34); Mean Corpuscular Hgb Conc 34.5 g/dL (32-36); Mean Corpuscular Volume 92.5 fL (80-100); Mean Platelet Volume 11.6 fL (7.4-10.4); Platelet Count 201 K/uL (130-400); RDW Coefficient of Variation 12.5 % (11.5-14.5); RDW Standard Deviation 42.2 fL (36.4-46.3); Red Blood Count 4.01 M/uL (4.2-5.4); White Blood Count 6.98 K/uL (4.8-10.8)
[2020-02-09 07:51] LABS: BUN Creatinine Ratio 22.7 (10-20); Calcium 8.6 mg/dl (8.5-10.1); Creatinine Clr Calc Pharmacy 48.1 ml/min; Est GFR (African American) 72.5; Est GFR (Non-African American) 62.5; Potassium 3.7 mmol/L (3.5-5.1)
--- NOTE | 2020-02-09 10:52 | Electrocardiogram Report ---
Test Reason : Blood Pressure : / mmHG Vent. Rate : 057 BPM Atrial Rate : 057 BPM P-R Int : 178 ms QRS Dur : 074 ms QT Int : 484 ms P-R-T Axes : 072 070 068 degrees QTc Int : 471 ms Sinus bradycardia Otherwise normal ECG When compared with ECG of 08-FEB-2020 11:17, No significant change was found Confirmed by Gregory Buchanan ([id number]) on 02/09/2020 10:51:28 AM Referred By: REFERRED SELF Confirmed By:Gregory Buchanan
--- NOTE | 2020-02-09 13:02 | Cardiology Progress Note ---
Date of Service February 09, 2020 Assessment & Plan (1) Chest pain: Troponin negative x3. EKG performed this morning revealed sinus bradycardia 57 bpm, normal, was unchanged compared to yesterday. Echocardiogram revealed normal left ventricular wall thickness normal LVEF, moderate tricuspid regurgitation, without evidence of pulmonary hypertension. I discussed the patient's test results as found thus far with her and discussed options including stress testing or ongoing observation. Given her negative troponin x3, and normal EKG, I think would be premature to proceed with invasive coronary angiography without more objective evidence of ischemia. This is especially the case given the potential risks of complication given her vascular disease and related concerns regarding complicated access. At this time, the patient declined stress test, and she favors ongoing observation and risk factor management. I think this is a reasonable approach. Continue aspirin, clopidogrel, atorvastatin. I am not certain why she is on both losartan and lisinopril as an outpatient and this needs to be clarified. Beta-aren therapy is contraindicated given her resting sinus bradycardia. Patient stable for discharge from a cardiac perspective. Admission and Anticipated Discharge Date Admission Date: February 08, 2020 Subjective Patient seen in follow-up. She states she feels well. Her right neck, arm pain is improved, resolved, she notes minimal residual sensation in her chest. Review of Systems Review of Systems: All systems reviewed & are unremarkable except as noted in HPI & below Physical Exam Physical Exam: Temp Pulse Resp BP Pulse Ox 36.4 C L 61 18 119/64 93 02/09/20 10:57 02/09/20 10:57 02/09/20 10:57 02/09/20 10:57 02/09/20 10:57 Constitutional: WD/WN, vitals as above Respiratory: normal respiratory effort, lungs clear to auscultation Cardiovascular: RRR, no murmur, no edema Gastrointestinal (Abdomen): normal bowel sounds, soft, nontender, no hepatosplenomegaly Neurologic: PERRL, EOMI, accommodation nl, no face palsy, no dysarthria Results & Data ([facility]) Vital Signs (Past 12 Hours) Vital Signs Temp Pulse Resp BP Pulse Ox 02/09/20 10:57 36.4 C L 61 18 119/64 93 02/09/20 08:17 36.5 C 64 19 147/72 H 95 02/09/20 03:37 36.5 C 61 18 125/68 93 Laboratory Results Cardiac Enzymes 02/08/20 02/08/20 Range/Units 17:26 23:53 Troponin I < 0.015 < 0.015 (0-0.045) ng/ml CBC 02/09/20 Range/Units 06:56 WBC 6.98 (4.8-10.8) K/uL RBC 4.01 L (4.2-5.4) M/uL Hgb 12.8 (12.0-16.0) g/dL Hct 37.1 (37-47) % Plt Count 201 (130-400) K/uL Comprehensive Metabolic Panel 02/09/20 Range/Units 06:56 Sodium 143 (136-145) mmol/L Potassium 3.7 (3.5-5.1) mmol/L Chloride 110 H (98-107) mmol/L Carbon Dioxide 27 (21-32) mmol/L BUN 21 H D (7-18) mg/dl Creatinine 0.90 (0.6-1.2) mg/dl Glucose 95 (70-99) mg/dl Calcium 8.6 (8.5-10.1) mg/dl Intake and Output 02/08/20 02/09/20 02/09/20 22:59 06:59 14:59 Intake Total 240 / 340 100 / 340 Balance 240 / 340 100 / 340 Intake: Oral 240 / 340 100 / 340 Other: Other Intake Source NPO @ 0000 Weight 72 kg 65.9 kg Weight Measurement Method Built in Bedscale Standing Scale (1) Chest pain Chest pain type: unspecified Qualified Code(s): R07.9 - Chest pain, unspecified
--- NOTE | 2020-02-09 14:42 | Hospitalist Progress Note ---
Date of Service February 09, 2020 Assessment & Plan (1) Chest tightness: Admitted with chest pain/tightness with a history of complex peripheral arterial disease Serial cardiac troponins and EKG unremarkable Echo showed normal LV wall thickness and function, moderate tricuspid regurgitation and without evidence of pulmonary hypertension Remains free from any symptoms this morning Appreciate cardiology input and recommendation He can be discharged home this afternoon (2) Right arm pain: This is a 74-year-old female with PMH of PAD s/p bilateral iliac artery stent placement in 2016, chronic right subclavian stenosis and carotid steal syndrome, tobacco use disorder with 40+ pack years, hypertension, GERD, history of breast cancer on tamoxifen and other medical problems as a below who presents with intermittent chest tightness over the past 2 days. Has right upper extremity numbness bulging mostly the hand and the fingers on radial side Complains of some neck pain as well Denies any weakness In terms have improved (3) Subclavian artery stenosis, right: (4) PAD (peripheral artery disease): S/p bilateral iliac artery stent placement in 2016, chronic right subclavian stenosis and carotid steal syndrome -Continue aspirin, statin, plavix (5) Hypertension: Normotensive. Continue losartan-hctz, lisinopril. Must check BP on L arm for accurate reading Been under control Has been taking an VENECIA inhibitor and also ARB to control blood pressure This has to be addressed in outpatient setting (6) Tobacco use disorder: Cessation strongly recommended (7) Breast cancer: History of mastectomy and chemotherapy. Currently on tamoxifen. Follows with Dr. Knox of heme-onc DVT Ppx: SQ heparin Code status: FULL PCP: Lopez Dispo: Observation telemetry. Plan to return home once medically stable. Likely be discharged this afternoon Admission and Anticipated Discharge Date Admission Date: February 08, 2020 Subjective 02/09/2020 The patient was seen and examined in telemetry unit She complains today of some numbness involving the right upper extremity Denies any chest pain and/or palpitation and no shortness of breath Review of Systems Review of Systems: All systems reviewed and are unremarkable except as noted below Cardiovascular: no chest pain, no dyspnea and no palpitations Musculoskeletal: no radicular pain Denies any acute arthritis involving any joint Neurologic: Minimal numbness involving the right fingers without any weakness Physical Exam Physical Exam: Lying in bed comfortably Constitutional: well developed and well nourished; no acute distress and not ill appearing Eyes: PERRL, conjunctivae normal, anicteric sclerae ENMT: external ear and nose normal, oropharynx normal Neck: trachea midline, no thyromegaly Respiratory: normal respiratory effort; no respiratory distress Auscultation: lungs clear to auscultation bilaterally Cardiovascular: Rate/Rhythm: regular rate and regular rhythm Heart Sounds: no murmur Extremities: no edema Gastrointestinal (Abdomen): Inspection/Auscultation: abdomen normal to inspection and normal bowel sounds; abdomen not distended Percussion/Palpation: abdomen soft; abdomen nontender Musculoskeletal: No acute arthritis involving any joint Neurologic: moves all extremities; no focal motor deficits No focal sensory and motor deficit Psychiatric: A+Ox3, euthymic affect Lymphatic: no cervical or axillary lymphadenopathy Results & Data Results & Data ([facility]) Vital Signs (Past 12 Hours) Vital Signs Temp Pulse Resp BP Pulse Ox 02/09/20 10:57 36.4 C L 61 18 119/64 93 02/09/20 08:17 36.5 C 64 19 147/72 H 95 02/09/20 03:37 36.5 C 61 18 125/68 93 Laboratory Results Short CBC 02/09/20 Range/Units 06:56 WBC 6.98 (4.8-10.8) K/uL Hgb 12.8 (12.0-16.0) g/dL Hct 37.1 (37-47) % Plt Count 201 (130-400) K/uL BMP 02/09/20 06:56 Sodium 143 Potassium 3.7 Chloride 110 H Carbon Dioxide 27 BUN 21 H D Creatinine 0.90 Glucose 95 Calcium 8.6 Cardiac Enzymes 02/08/20 02/08/20 Range/Units 17:26 23:53 Troponin I < 0.015 < 0.015 (0-0.045) ng/ml Medications Administered Current Inpatient Medications Acetaminophen (Acetaminophen 325 Mg Tab) 650 mg PO Q4H PRN PRN Reason: Pain or Fever Stop: 03/09/20 15:50 Last Admin: 02/08/20 20:19 Dose: 650 mg Documented by: Acetaminophen (Acetaminophen 500 Mg Tab) 1,000 mg PO Q6H PRN PRN Reason: Pain Stop: 03/09/20 16:29 Aspirin (Aspirin 81 Mg Ectab) 81 mg PO PM LAURE Stop: 03/09/20 20:59 Last Admin: 02/08/20 20:22 Dose: 81 mg Documented by: Atorvastatin Calcium (Atorvastatin 20 Mg Tab) 20 mg PO PM LAURE Stop: 03/09/20 20:59 Last Admin: 02/08/20 20:21 Dose: 20 mg Documented by: Clopidogrel Bisulfate (Clopidogrel Bisulfate 75 Mg Tab) 75 mg PO PM LAURE Stop: 03/09/20 20:59 Last Admin: 02/08/20 20:21 Dose: 75 mg Documented by: HCTZ/Losartan Potassium (Losartan/Hctz 50/12.5mg Tab) 1 tab PO PM LAURE Stop: 03/09/20 20:59 Last Admin: 02/08/20 20:19 Dose: 1 tab Documented by: Heparin Sodium (Porcine) (Heparin Sod 5,000 Unit/0.5 Ml Vial) 5,000 units SQ Q8 LAURE Stop: 03/09/20 21:59 Last Admin: 02/09/20 13:55 Dose: 5,000 units Documented by: Lisinopril (Lisinopril 5 Mg Tab) 5 mg PO PM LAURE Stop: 03/09/20 20:59 Last Admin: 02/08/20 20:20 Dose: 5 mg Documented by: Ondansetron HCl (Ondansetron Inj 2 Mg/Ml 2 Ml Vial) 4 mg IV Q6H PRN PRN Reason: Nausea Stop: 03/09/20 15:50 Pantoprazole Sodium (Pantoprazole 40 Mg Tab) 20 mg PO PM LAURE Stop: 03/09/20 20:59 Last Admin: 02/08/20 20:20 Dose: 20 mg Documented by: Polyethylene Glycol (Polyethylene (Miralax) 17 Gm Pack) 17 gm PO DAILY PRN PRN Reason: Constipation Stop: 03/09/20 15:50 Tamoxifen Citrate (Tamoxifen Citrate 10 Mg Tablet) 20 mg PO PM LAURE Stop: 03/09/20 20:59 Last Admin: 02/08/20 20:21 Dose: 20 mg Documented by:
--- NOTE | 2020-02-10 08:31 | Discharge Summary ---
Date of Service February 10, 2020 Admission HPI Per Admitting Provider This is a 74-year-old female with PMH of PAD s/p bilateral iliac artery stent placement in 2016, chronic right subclavian stenosis and carotid steal syndrome, tobacco use disorder with 40+ pack years, hypertension, GERD, history of breast cancer on tamoxifen and other medical problems as a below who presents with intermittent chest tightness over the past 2 days. Endorses tight feeling across chest over the past few days and with waking this morning that lasts for a few moments and then resolves. Associated with R arm pain with tingling in fingers of right hand. Arm pain is worse with movement of neck. States that pain in arm is intermittent but was severe enough this morning that she had difficulty eating with her dominant hand. Since arrival to the ED, patient was given Toradol with complete resolution of pain. Follows with [facility] cardiology for diffuse vascular disease and presumed underlying CAD but no prior cardiac catheterization. Negative dobutamine stress echo in September 2018. Has history of peripheral artery disease with bilateral iliac artery stent placement in 2015 as well as chronic right subclavian stenosis and carotid steal syndrome. Was due to follow-up with vascular service in [place] in November 2019 but did not go to appointment. Patient is on aspirin, Plavix and statin. Currently feeling asymptomatic except for intermittent aching pain of R arm. Denies any fever, chills, lightheadedness, headache, palpitations, wheezing, nausea, vomiting, abdominal pain, dysuria, diarrhea or constipation. Does endorse chronic cough that is unchanged. No known sick contacts. Admission Exam Per Admitting Provider Physical Exam: General Appearance: WD/WN, vitals as above, NAD, sitting up in bed, pleasant, conversing easily, appears older than stated age Head: normocephalic, atraumatic Eyes: normal inspection, PERRL, conjunctivae normal, anicteric sclerae ENT: external ear and nose normal, oropharynx normal Neck: normal visual inspection, trachea midline, no thyromegaly Respiratory: normal respiratory effort, lungs clear to auscultation, no wheeze, rales, rhonchi. No accessory muscle use Cardiovascular: regular rate, rhythm, no murmur appreciated, diminished but palpable R radial pulse, hand is warm. 2+ L radial pulse. Cap refill intact bilaterally. Vessels: no JVD Chest: normal inspection of chest Abdomen/GI: normal bowel sounds, soft, nontender, no hepatosplenomegaly Extremities/Musculoskeletal: no cyanosis or clubbing, extremities motor strength 5/5 Neurologic: PERRL, EOMI, accommodation nl, no face palsy, no dysarthria, CN's II-XI intact bilaterally and moves all extremities Psychiatric: A+Ox3, euthymic affect Skin: no rashes, normal color, warm/dry Principal Diagnosis Chest pain-no ACS, right arm pain with numbness-resolved, hypertension, PAD Discharge Exam Constitutional well developed and well nourished; no acute distress and not ill appearing Eyes PERRL, conjunctivae normal, anicteric sclerae ENMT external ear and nose normal, oropharynx normal Neck trachea midline, no thyromegaly Respiratory normal respiratory effort; no respiratory distress Auscultation: lungs clear to auscultation bilaterally Cardiovascular Rate/Rhythm: regular rate and regular rhythm Heart Sounds: no murmur Extremities: no edema Gastrointestinal (Abdomen) Inspection/Auscultation: abdomen normal to inspection and normal bowel sounds; abdomen not distended Percussion/Palpation: abdomen soft; abdomen nontender Neurologic moves all extremities; no focal motor deficits Psychiatric A+Ox3, euthymic affect Lymphatic no cervical or axillary lymphadenopathy Discharge Data Allergies Allergy/AdvReac Type Severity Reaction Status Date / Time morphine Allergy Mild UNSURE Verified 02/08/20 11:27 clarithromycin Allergy Unknown . Verified 02/08/20 11:27 codeine Allergy Unknown Verified 02/08/20 11:27 Penicillins Allergy Unknown Verified 02/08/20 11:27 nitroglycerin AdvReac Severe BP DROP Unverified 02/08/20 11:27 Consultations 02/08/20 13:52 ED Decision to Admit Stat 02/08/20 16:27 Consult Cardiology Routine Ordered Studies 02/08/20 11:13 US venous doppler UE RT Stat Hospital Course (1) Chest tightness: Admitted with chest pain/tightness with a history of complex peripheral arterial disease Serial cardiac troponins and EKG unremarkable Echo showed normal LV wall thickness and function, moderate tricuspid regurgitation and without evidence of pulmonary hypertension Remains free from any symptoms this morning Appreciate cardiology input and recommendation He can be discharged home this afternoon (2) Right arm pain: This is a 74-year-old female with PMH of PAD s/p bilateral iliac artery stent placement in 2016, chronic right subclavian stenosis and carotid steal syndrome, tobacco use disorder with 40+ pack years, hypertension, GERD, history of breast cancer on tamoxifen and other medical problems as a below who presents with intermittent chest tightness over the past 2 days. Has right upper extremity numbness bulging mostly the hand and the fingers on radial side Complains of some neck pain as well Denies any weakness In terms have improved (3) Subclavian artery stenosis, right: (4) PAD (peripheral artery disease): S/p bilateral iliac artery stent placement in 2016, chronic right subclavian stenosis and carotid steal syndrome -Continue aspirin, statin, plavix (5) Hypertension: Normotensive. Continue losartan-hctz, lisinopril. Must check BP on L arm for accurate reading Been under control Has been taking an VENECIA inhibitor and also ARB to control blood pressure This has to be addressed in outpatient setting (6) Tobacco use disorder: Cessation strongly recommended (7) Breast cancer: History of mastectomy and chemotherapy. Currently on tamoxifen. Follows with Dr. Knox of heme-onc DVT Ppx: SQ heparin Code status: FULL PCP: Lopez Dispo: Observation telemetry. Plan to return home once medically stable. Likely be discharged this afternoon Total Time Total Time Spent Total Time Spent (In Minutes): 35 minutes Total Time Includes: Examination of the Patient, Discharge Planning, Medication Reconciliation and Communication With Other Providers Discharge Plan Discharge Items Patient Disposition: Home - Self-Care Reason For Visit: CHEST PAIN Discharge Diagnosis: Chest pain-no ACS, right arm pain with numbness-resolved, hypertension, PAD Condition on Discharge: Fair Activity: Resume your previous activity Non-emergency contact: Primary Care Provider Call non-emergency contact if: you have any medication questions and your symp toms worsen Follow-up/Referrals: Lee Marroquin MD [Primary Care Provider] - (Date & Time 02/15/2020 10:00 AM Provider Lee Marroquin MD Department Family Practice [facility] ) Diet: Heart Healthy and Low Sodium (2gm) Addtl Attending Provider Instructions: Please take precaution to avoid falls Please quit smoking You do not need to take both lisinopril and losartan. Please talk to your primary care provider about it. Pending Studies at Discharge: No Stand-Alone Forms: My [employer], Smoking Cessation Medications and DC Order Prescriptions: Continued clopidogrel [Plavix] 75 mg Tablet 75 mg PO PM Qty: 0 RF: 0 aspirin 81 mg Tablet,Chewable 81 mg PO PM Qty: 0 RF: 0 losartan-hydrochlorothiazide 50-12.5 mg Tablet 1 tab PO PM Qty: 0 RF: 0 tamoxifen 20 mg Tablet 20 mg PO PM Qty: 0 RF: 0 atorvastatin 20 mg tablet 20 mg PO PM RF: 0 pantoprazole 20 mg tablet,delayed release (DR/EC) 20 mg PO PM RF: 0 lisinopril 5 mg Tablet 5 mg PO PM RF: 0 acetaminophen [Tylenol Extra Strength] 500 mg Tablet 1,000 mg PO Q6H PRN (Reason: Pain) RF: 0 Discharge Orders: Discharge Order (Routine); Ordered 02/09/20 Ordered By: Gokul Ojeda/Other Patient Handouts: Coping with Smoking Withdrawal, Complementary Care for Pain Admission Data Admit Date/Time: 02/08/20 14:42 Attending Provider: Gokul Avila Admit Provider: Brian Erazo Primary Care Provider: Lee Marroquin Other Providers: Brian Erazo ; Jose Noble Other Interventions: Discharge Summary Assessment (RN) Last Done: 02/09/20 16:45
== END 2020-02-09 16:58 | disposition home or self-care (01) ==
LOC: 2S 10:47 → ED 10:47 → SUATTDRO 14:42 → 2S 15:26

== ENCOUNTER 2024-06-22 10:58 | Observation (INO) ==
--- NOTE | 2024-06-22 11:50 | XRay Report ---
XR chest 1V portable CLINICAL HISTORY: Chest pain, nonspecific COMPARISON STUDY: 01/26/2023 FINDINGS: Stable small hiatal hernia. Heart size and pulmonary vasculature are normal. No effusion, c onsolidation, or pneumothorax. IMPRESSION: No acute findings. ACT 112: Negative or not required by law. Electronically signed by: Harpal Abdullahi M.D. 06/22/2024 11:49 AM
[2024-06-22 11:53] LABS: Basophils # (auto) 0.05 K/uL (0.00-0.20); Basophils % (auto) 0.5 %; Eosinophils # (auto) 0.21 K/uL (0.00-0.50); Eosinophils % (auto) 2.1 %; Hematocrit (blood only) 38.1 % (37.0-47.0); Hemoglobin 13.5 g/dl (12.0-16.0); Immature Granulocytes # (auto) 0.03 K/uL (0.01-0.20); Immature Granulocytes % (auto) 0.3 %; Lymphocytes # (auto) 1.32 K/uL (1.20-3.40); Lymphocytes % (auto) 13.2 %; Mean Corpuscular Hemoglobin 31.5 pg (25.0-34.0); Mean Corpuscular Hgb Conc 35.4 g/dL (32.0-36.0); Mean Corpuscular Volume 88.8 fL (80.0-100.0); Mean Platelet Volume 11.9 fL (9.4-12.4); Neutrophils % (auto) 72.9 %; Platelet Count 224 K/uL (130-400); RDW Coefficient of Variation 12.4 % (11.5-14.5); RDW Standard Deviation 40.4 fL (36.4-46.3); Red Blood Count 4.29 M/uL (4.20-5.40); White Blood Count 10.01 K/ul (4.8-10.8)
[2024-06-22 12:05] LABS: Albumin Globulin Ratio 1.2 (0.9-2); Albumin Level 3.6 gm/dl (3.4-5.0); Bilirubin,Total 0.9 mg/dl (0.2-1.0); Calcium 9.1 mg/dl (8.6-10.3); Creatinine Clr Calc Pharmacy 30.8 ml/min; Globulin 2.9 gm/dl (2.5-4.0); Potassium 3.1 mmol/L (3.5-5.1); Total Protein 6.5 gm/dl (6.0-8.3)
--- NOTE | 2024-06-22 12:29 | Emergency Department Note ---
Impression & Plan Chest pain, HTN (hypertension), Elevated troponin, Neck pain ED Provider Note NAME: ELEN TREVIZO AGE: 78 SEX: F : 1945 ARRIVES VIA: Ambulance INFORMANT: Patient ED PROVIDER(S): Aquilino Daly DO CHIEF COMPLAINT: Left-sided chest pain HPI: Patient is a 78-year-old female with a past medical history of CAD, subclavian stenosis, PAD, asthma who presents to the ER for left-sided neck pain, chest wall pain radiating into her left shoulder. Pain is worse with movement of her neck as well as sitting twisting, turning, and bending. She notes has been constant since 9 PM last night. It is worse with movement of her left upper extremity. She denies any shortness of breath. No belly pain. No nausea, vomiting, or diarrhea. No dysuria, urgency, or frequency. No other exacerbating or remitting factors. ADDITIONAL HISTORY OBTAINED: Per HPI Chronic Medical/Social Conditions Affecting Care: Per HPI PAST MEDICAL HISTORY:See Below PAST SURGICAL HISTORY:See Below FAMILY HISTORY:See Below SOCIAL HISTORY:See Below HOME MEDICATIONS:See Below ALLERGIES:See Below VITALS:See Below PHYSICAL EXAMINATION: GENERAL: Sitting up in bed, alert, well appearing, well nourished, no distress, non-toxic EYE EXAM: normal conjunctiva. OROPHARYNX: mucous membranes are moist NECK: supple, no nuchal rigidity, no adenopathy, non-tender CHEST: Reproducible left upper chest wall pain tracking into the trapezius and back of the neck LUNGS: Clear to auscultation. Normal chest wall mechanics HEART: no murmurs, S1 normal and S2 normal ABDOMEN: abdomen soft, non-tender, normo-active bowel sounds, no masses, no rebound or guarding. BACK: Back is symmetrical on inspection and there is no deformity, no midline tenderness, no CVA tenderness. SKIN: no rashes and no bruising UPPER EXTREMITIES: upper extremities are grossly normal. LOWER EXTREMITIES: No pitting edema. NEURO EXAM: Normal sensorium, cranial nerves II-XII grossly intact, normal speech, no gross weakness of arms, no gross weakness of legs. MEDICAL DECISION MAKING: Patient is a 78-year-old female who presents ER for above-stated complaint. IV was established and blood work was obtained. Labs showed no significant leukocytosis or anemia. INR unremarkable. BMP with a hypokalemia 3.1. LFTs bilirubin is unremarkable. Troponin was elevated mildly at 17. Viral panel was negative. Pain is reproducible on exam on palpation of the chest. With the slightly elevated troponin patient already received aspirin. Patient was given Toradol and morphine for pain. X-rays of the cervical region was unremarkable. Patient was updated bedside. Discussed case with the hospitalist for further evaluation management treatment. Consults/Care Managements Discussions: Per MDM Triage Nursing notes reviewed. Limited review of prior medical records performed Vital Signs: reviewed and remarkable for HTN Differential diagnosis: Cardiac ischemia, aortic dissection, pulmonary embolism, pneumothorax, pneumonia, pericarditis, myocarditis, esophageal rupture, GERD, cholecystitis, pancreatitis, musculoskeletal, as well as other pathologies. ER treatment provided: See below Diagnostics interpreted by me include EKG and cardiac monitoring as listed below: -Cardiac Monitoring: An order was placed for continuous cardiac monitoring. The monitor shows a rate of 70 with sinus rhythm. -ECG: Sinus rhythm rate of 73 Normal axis No PVCs QTc 447 -Laboratory studies:Interpreted by me as stated above in MDM and shown below. Imaging studies: Xrays: As interpreted by me: Portable AP upright 1 view of the chest shows no focal Lutrate X-rays of the cervical spine were negative per radiology CTs show: none Procedures:none Critical Care: None Past Med/Surg History Problem List (Updated 06/22/24 @ 18:23 by Aquilino Daly DO) Neck pain (Acute) Elevated troponin (Acute) HTN (hypertension) (Acute) Chest pain (Acute) Non-cardiac chest pain Coronary artery calcification Atypical chest pain Chest pain (Acute) Abnormal EKG (Acute) Cervical disc disease (Acute) Right arm pain Chest tightness Tobacco use disorder (Acute) PAD (peripheral artery disease) (Acute) Subclavian artery stenosis, right Breast cancer (Acute) Anemia (Acute) GERD (gastroesophageal reflux disease) (Chronic) Asthma (Acute) Hypertension (Acute) Constipation (Acute) Hypertension (Chronic) Surgical History S/P insertion of iliac artery stent bilateral, 2016 History of cholecystectomy Hx of cholecystectomy H/O: hysterectomy H/O mastectomy History of endoscopy Family History Mother Heart disease Other Breast cancer Social History Smoking Status: Current every day smoker Tobacco Type: Cigarettes packs per day: 1; Cigarettes Per Day: 1 ppd; Second Hand Exposure: Yes; Do You Dip or Chew Tobacco: No; Hx Alcohol Use: No Hx Substance Use: No Preferred Language: Indonesian Communication Ability: Effective Public Safety Director Required: No Beliefs That Will Affect Care: None Current Living Situation: Spouse Feels Safe at Home: Yes Safety Concerns: Feels Safe At This Time Assistive Devices: Denture - Upper, Denture - Lower, Glasses and Hearing Aid - Bilateral Assistive Devices Comment: glasses and hearing aids not with pt Allergies Allergies Allergy/AdvReac Type Severity Reaction Status Date / Time morphine Allergy Mild UNSURE Verified 01/27/23 00:29 clarithromycin Allergy Unknown Unknown Verified 01/27/23 00:29 codeine Allergy Unknown Unknown Verified 01/27/23 00:29 Penicillins Allergy Unknown Unknown Verified 01/27/23 00:29 nitroglycerin AdvReac Severe BP DROP Verified 01/27/23 00:29 Home Meds Home Medications Medication Instructions Recorded Confirmed aspirin 81 mg chewable tablet 81 mg PO QPM ##0 09/02/17 06/22/24 atorvastatin 20 mg tablet 20 mg PO QPM 02/08/20 06/22/24 cyanocobalamin (vitamin B-12) 1,000 mcg PO QPM 11/13/21 06/22/24 1,000 mcg tablet (Vitamin B-12) cholecalciferol (vitamin D3) 50 50 mcg PO PM 01/27/23 06/22/24 mcg (2,000 unit) tablet (Vitamin D3) hydrochlorothiazide 12.5 mg capsule 12.5 mg PO DAILY 06/22/24 06/22/24 losartan 100 mg tablet 100 mg PO PM 06/22/24 06/22/24 pantoprazole 20 mg tablet,delayed 20 mg PO PM 06/22/24 06/22/24 release Results & Data (ED) Vital Signs Vital Signs - 24 hr 06/22/24 11:09 06/22/24 11:22 06/22/24 11:22 Temperature 36.8 C Temperature Source Oral Pulse Rate 71 70 Pulse Rate [Apical] Pulse Rate from SpO2 Sensor 72 Respiratory Rate 15 19 Respiratory Effort / Characteristics Non-Labored Spontaneous Non-Labored Spontaneous Respiratory Depth Normal Normal Blood Pressure 177/79 H 179/79 H Blood Pressure [Left Arm] Blood Pressure Mean 111 112 Blood Pressure Mean [Left Arm] Pulse Oximetry 96 94 Oxygen Delivery Method Room Air Sepsis Recent Fever Within 48 Hours No Sepsis New/Unexplained Change in Mental Status No Sepsis Action Taken by Nursing No Action Required 06/22/24 12:00 06/22/24 12:03 06/22/24 12:30 Temperature Temperature Source Pulse Rate 70 71 66 Pulse Rate [Apical] Pulse Rate from SpO2 Sensor 73 67 Respiratory Rate 18 17 Respiratory Effort / Characteristics Respiratory Depth Blood Pressure 132/95 Blood Pressure [Left Arm] Blood Pressure Mean 107 Blood Pressure Mean [Left Arm] Pulse Oximetry 93 95 Oxygen Delivery Method Sepsis Recent Fever Within 48 Hours Sepsis New/Unexplained Change in Mental Status Sepsis Action Taken by Nursing 06/22/24 13:00 06/22/24 14:06 Temperature Temperature Source Pulse Rate 75 Pulse Rate [Apical] 88 Pulse Rate from SpO2 Sensor 75 Respiratory Rate 19 12 Respiratory Effort / Characteristics Non-Labored Spontaneous Respiratory Depth Normal Blood Pressure Blood Pressure [Left Arm] 146/87 H Blood Pressure Mean Blood Pressure Mean [Left Arm] 106 Pulse Oximetry 97 94 Oxygen Delivery Method Room Air Sepsis Recent Fever Within 48 Hours Sepsis New/Unexplained Change in Mental Status Sepsis Action Taken by Nursing Laboratory Data 06/22/24 11:18 06/22/24 11:18 Lab Results 06/22/24 06/22/24 Range/Units 11:18 14:12 WBC 10.01 (4.8-10.8) K/ul RBC 4.29 (4.20-5.40) M/uL Hgb 13.5 (12.0-16.0) g/dl Hct 38.1 (37.0-47.0) % MCV 88.8 (80.0-100.0) fL MCH 31.5 (25.0-34.0) pg MCHC 35.4 (32.0-36.0) g/dL RDW Std Deviation 40.4 (36.4-46.3) fL RDW Coeff of Layla 12.4 (11.5-14.5) % Plt Count 224 (130-400) K/uL MPV 11.9 (9.4-12.4) fL Immature Gran % (Auto) 0.3 % Neut % (Auto) 72.9 % Lymph % (Auto) 13.2 % [place] % (Auto) 11.0 % Eos % (Auto) 2.1 % Baso % (Auto) 0.5 % Neut # (Auto) 7.30 H (1.40-6.50) K/uL Lymph # (Auto) 1.32 (1.20-3.40) K/uL [place] # (Auto) 1.10 H (0.11-0.59) K/uL Eos # (Auto) 0.21 (0.00-0.50) K/uL Baso # (Auto) 0.05 (0.00-0.20) K/uL Immature Gran # (Auto) 0.03 (0.01-0.20) K/uL ESR 23 (0-30) mm/hr PT 10.7 (9.0-12.0) Seconds INR 1.0 (0.9-1.1) APTT 25 (21-31) Seconds PTT Ratio 0.9 Sodium 145 (136-145) mmol/L Potassium 3.1 L (3.5-5.1) mmol/L Chloride 109 H (98-107) mmol/L Carbon Dioxide 28 (21-32) mmol/L Anion Gap 8 (3-11) BUN 23 (6-23) mg/dl Creatinine 1.35 H (0.6-1.2) mg/dl Est Cr Clr Drug Dosing 30.8 ml/min eGFR 39.98 BUN/Creatinine Ratio 17.0 (10-20) Glucose 98 (70-99(Fasting)) mg/dl Calcium 9.1 (8.6-10.3) mg/dl Total Bilirubin 0.9 (0.2-1.0) mg/dl AST 17 (13-39) U/L ALT 9 (7-52) U/L Alkaline Phosphatase 52 (34-104) U/L Troponin I High Sens 15.8 H 26.5 H D (0-14) pg/ml C-Reactive Protein 1.86 H (0-0.5) mg/dl Total Protein 6.5 (6.0-8.3) gm/dl Albumin 3.6 (3.4-5.0) gm/dl Globulin 2.9 (2.5-4.0) gm/dl Albumin/Globulin Ratio 1.2 (0.9-2) Adenovirus (PCR) Not Detected (NotDetected) B. pertussis DNA (PCR) Not Detected (NotDetected) B.parapertussis DNA PCR Not Detected (NotDetected) C. pneumoniae DNA (PCR) Not Detected (NotDetected) Coronavirus OC43 (PCR) Not Detected (NotDetected) Coronavirus HKU1 (PCR) Not Detected (NotDetected) Coronavirus 229E (PCR) Not Detected (NotDetected) SARS-CoV-2 (PCR) Not Detected (NotDetected) Coronavirus NL63 (PCR) Not Detected (NotDetected) Human Metapneumovir PCR Not Detected (NotDetected) Influenza Type A (PCR) Not Detected (NotDetected) Influenza Type B (PCR) Not Detected (NotDetected) M. pneumoniae (PCR) Not Detected (NotDetected) Parainfluenza 1 (PCR) Not Detected (NotDetected) Parainfluenza 2 (PCR) Not Detected (NotDetected) Parainfluenza 3 (PCR) Not Detected (NotDetected) Parainfluenza 4 (PCR) Not Detected (NotDetected) RSV (PCR) Not Detected (NotDetected) Entero/Rhino (PCR) Not Detected (NotDetected) Administered Medications Diclofenac Sodium (Diclofenac Sod 1% Gel 100 Gm Tube) 2 gm EXT QID LAURE; Protocol Stop: 07/22/24 16:59 Last Admin: 06/22/24 17:48 Dose: 2 gm Documented By: Potassium Chloride/Sodium Chloride (Normal Saline W/20 Meq Kcl) 20 meq in 1,000 mls @ 80 mls/hr IV .[id number] LAURE Stop: 06/23/24 03:44 Last Admin: 06/22/24 17:47 Dose: 80 mls/hr Documented By: Discontinued Medications Aspirin (Aspirin Chew 324 Mg) 324 mg PO NOW STA Stop: 06/22/24 13:05 Last Admin: 06/22/24 13:27 Dose: Not Given Documented By: ERIBERTO Diclofenac Sodium (Diclofenac Sod 1% Gel 100 Gm Tube) 2 gm EXT NOW STA; Protocol Stop: 06/22/24 15:03 Last Admin: 06/22/24 17:28 Dose: Not Given Documented By: Hydromorphone HCl (Hydromorphone Inj 0.5 Mg/0.5 Ml Syr) 0.5 mg IV NOW STA Stop: 06/22/24 13:37 Last Admin: 06/22/24 13:54 Dose: 0.5 mg Documented By: BS Ketorolac Tromethamine (Ketorolac Tromethamine 15 Mg/Ml Vial) 10 mg IV NOW ONE Stop: 06/22/24 12:25 Last Admin: 06/22/24 12:34 Dose: 10 mg Documented By: BS Ondansetron HCl (Ondansetron Inj 2 Mg/Ml 2 Ml Vial) 4 mg IV NOW STA Stop: 06/22/24 13:38 Last Admin: 06/22/24 13:54 Dose: 4 mg Documented By: BS Potassium Chloride (Potassium Chloride Crtab 20 Meq Tabcr) 40 meq PO NOW STA Stop: 06/22/24 14:12 Last Admin: 06/22/24 15:04 Dose: 40 meq Documented By: BS Imaging Data Radiologist's Impression: Chest X-Ray 06/22/24 11:22 XR chest 1V portable CLINICAL HISTORY: Chest pain, nonspecific COMPARISON STUDY: 01/26/2023 FINDINGS: Stable small hiatal hernia. Heart size and pulmonary vasculature are normal. No effusion, consolidation, or pneumothorax. IMPRESSION: No acute findings. ACT 112: Negative or not required by law. Electronically signed by: Harpal Abdullahi M.D. 06/22/2024 11:49 AM Cervical Spine X-Ray 06/22/24 12:24 XR cervical spine 2 or 3V CLINICAL HISTORY: neck pain COMPARISON STUDY: None FINDINGS: There is severe diffuse degenerative disc disease. No fracture or subluxation. There are carotid bulb calcifications. IMPRESSION: Degenerative disc disease. ACT 112: Negative or not required by law. Electronically signed by: Harpal Abdullahi M.D. 06/22/2024 1:25 PM Discharge Plan Visit Data Chief Complaint: Cardiac Assessment ED Provider: Aquilino Daly Discharge Problem: Chest pain, HTN (hypertension), Elevated troponin, Neck pain Patient Disposition: Admitted As Inpatient Discharge Instructions Interventions: ED Discharge Assessment Last Done: 06/22/24 16:05 Discharge Problem: Chest pain Qualifiers: Chest pain type: unspecified Qualified Code(s): R07.9 - Chest pain, unspecified HTN (hypertension) Qualifiers: Hypertension type: unspecified Qualified Code(s): I10 - Essential (primary) hypertension
[2024-06-22] MEDS: KETOROLAC TROMETHAMINE 15 MG/ML VIAL IV ONE (12:34)
[2024-06-22 12:37] LABS: Troponin I High Sensitivity 15.8 pg/ml (0-14)
[2024-06-22 12:41] LABS: Adenovirus PCR Not Detected (NotDetected); Bordetella parapertussis PCR Not Detected (NotDetected); Bordetella pertussis PCR Not Detected (NotDetected); Chlamydia pneumoniae PCR Not Detected (NotDetected); Coronavirus 229E PCR Not Detected (NotDetected); Coronavirus CoV-2 (COVID19)PCR Not Detected (NotDetected); Coronavirus HKU1 PCR Not Detected (NotDetected); Coronavirus NL63 PCR Not Detected (NotDetected); Coronavirus OC43PCR Not Detected (NotDetected); Human Metapneumovirus PCR Not Detected (NotDetected); Influenza A PCR Not Detected (NotDetected); Influenza B PCR Not Detected (NotDetected); Mycoplasma pneumoniae PCR Not Detected (NotDetected); Parainfluenza Virus 1 PCR Not Detected (NotDetected); Parainfluenza Virus 2 PCR Not Detected (NotDetected); Parainfluenza Virus 3 PCR Not Detected (NotDetected); Parainfluenza Virus 4 PCR Not Detected (NotDetected); Respiratory Syncytial VirusPCR Not Detected (NotDetected); Rhinovirus/Enterovirus PCR Not Detected (NotDetected)
[2024-06-22 12:52] LABS: Partial Thromboplastin Ratio 0.9; Partial Thromboplastin Time 25 Seconds (21-31); Prothrombin Time 10.7 Seconds (9.0-12.0)
--- NOTE | 2024-06-22 13:26 | XRay Report ---
XR cervical spine 2 or 3V CLINICAL HISTORY: neck pain COMPARISON STUDY: None FINDINGS: There is severe diffuse degenerative disc disease. No fracture or subluxation. There are ca rotid bulb calcifications. IMPRESSION: Degenerative disc disease. ACT 112: Negative or not required by law. Electronically signed by: Harpal Abdullahi M.D. 06/22/2024 1:25 PM
[2024-06-22] MEDS: ASPIRIN CHEW 324 MG PO STA (13:27)
[2024-06-22] MEDS: ONDANSETRON INJ 2 MG/ML 2 ML VIAL IV STA (13:54)
[2024-06-22] MEDS: HYDROmorphone INJ 0.5 MG/0.5 ML SYR IV STA (13:54)
--- NOTE | 2024-06-22 14:24 | History & Physical Report ---
Date of Service June 22, 2024 Assessment & Plan (1) Atypical chest pain: (2) PAD (peripheral artery disease): (3) Subclavian artery stenosis, right: (4) Tobacco use disorder: Plan This is a 78-year-old female who has a significant past medical history of HTN, HLD, COPD, PAD, subclavian artery stenosis on the right, right internal carotid artery stenosis, GERD, osteoporosis, depression, history of breast cancer who presents to ED secondary to chest pain since 9pm last evening. #Atypical Chest Pain #Elevated troponin admit to tele cycle trop q6hr, if significant elevation will consider IV heparin Pain is reproducible on exam and with shoulder ROM - will obtain rib series XR and L shoulder XR, topical voltaren gel, consult PT for possible MSK component obtain resting echo consult cardiology for possible stress test given significant risk factors and trop elevation if trop does not have any substanial elevation, I suspect it is elevated in relation to mild MARI, baseline cr 1.0, today 1.35 and 2/20 outpt was 1.5 in setting of flu like illness earlier this month will also obtain ESR/CRP Doubt GI component #MARI: baseline cr 1.0, today 1.35, and outpt 2/20 was 1.5, suspect in setting of recent flu like illness, gentle hydration, avoid nephrotoxic agents (received toradol in ed) and follow renal fxn #Hypokalemia: replace #PAD/R subclavian stenosis: follows [facility], hx of MARY stent 2016, continue asa, statin #Tobacco abuse: 1ppd smoker, encourage cessation #COPD: no acute exac DVT ppx: SCDS for tonight, if to remain hospitalized > 24hrs would add chemical ppx FULL CODE PCP: Lopez Dispo: admit Pt was seen and examined in collaboration with Dr. Kam, please see addendum I spent a total of 60 minutes coordinating, documenting and providing care for this patient excluding time spent in the performance of separately billed services or time spent by another provider/QHP. History of Present Illness Chief Complaint: Chest pain Primary Care Provider: Lee Marroquin MD This is a 78-year-old female who has a significant past medical history of HTN, HLD, COPD, PAD, subclavian artery stenosis on the right, right internal carotid artery stenosis, GERD, osteoporosis, depression, history of breast cancer who presents to ED secondary to chest pain since 9pm last evening. Pt and daughter are at bedside who help elicit hx. Of significance she follows with [facility] vascular in regards to her PAD and subclavian stenosis. She did require percutaneous intervention with placement of MARY stents in 2015 due to claudication and continues to follow with them yearly. She is maintained on aspirin and Atorvastatin. She also follows with [facility] cardiology. She was last seen in 2023. Her last dobutamine stress echo was in 2018 which was negative for inducible ischemia. Patient states she started with an abrupt onset of right-sided chest pain at 9 PM last evening. At the time she was just lying in bed. Pain radiates to her left shoulder and down her left arm as well as to her neck. She denies any recent injury, fall or trauma. She denies having similar symptoms in the past. She has a strong past history of GERD and states it does not feel like this. She did have associated nausea with it but denies any associated diaphoresis or shortness of breath. She did try walking around to see if it would make it better, but it remained unchanged. She reports recently being ill the month of May. She states having a flulike illness for most of the month with fever, chills, weakness and cough. She continues to have a dry cough but also is a 1 pack/day smoker. She reports decreased intake throughout this month. She reports her pain is currently a 6 out of 10. She feels that the IV Toradol improved her symptoms. In ED patient remained hemodynamically stable. Her EKG was without ischemic change but she did have a mild bump in her troponin at 15 with a repeat in 2 hours being at 26.5. Her potassium was mildly low at 3.1 and her creatinine was bumped to 1.35. Outpatient chart review revealed that she had lab work on 06/15 which revealed a creatinine of 1.5. It appears her baseline creatinine is approximately 1. Allergies Allergy/AdvReac Type Severity Reaction Status Date / Time morphine Allergy Mild UNSURE Verified 01/27/23 00:29 clarithromycin Allergy Unknown Unknown Verified 01/27/23 00:29 codeine Allergy Unknown Unknown Verified 01/27/23 00:29 Penicillins Allergy Unknown Unknown Verified 01/27/23 00:29 nitroglycerin AdvReac Severe BP DROP Verified 01/27/23 00:29 Home Medications Medication Instructions Recorded Confirmed Type aspirin 81 mg chewable tablet 81 mg PO QPM ##0 09/02/17 06/22/24 History atorvastatin 20 mg tablet 20 mg PO QPM 02/08/20 06/22/24 History cyanocobalamin (vitamin B-12) 1,000 mcg PO QPM 11/13/21 06/22/24 History 1,000 mcg tablet (Vitamin B-12) cholecalciferol (vitamin D3) 50 50 mcg PO PM 01/27/23 06/22/24 History mcg (2,000 unit) tablet (Vitamin D3) hydrochlorothiazide 12.5 mg capsule 12.5 mg PO DAILY 06/22/24 06/22/24 History losartan 100 mg tablet 100 mg PO PM 06/22/24 06/22/24 History pantoprazole 20 mg tablet,delayed 20 mg PO PM 06/22/24 06/22/24 History release Past Med/Surg History Problem List (Updated 06/22/24 @ 17:14 by John Urias MD) Non-cardiac chest pain Coronary artery calcification Atypical chest pain Chest pain (Acute) Abnormal EKG (Acute) Cervical disc disease (Acute) Right arm pain Chest tightness Tobacco use disorder (Acute) PAD (peripheral artery disease) (Acute) Subclavian artery stenosis, right Breast cancer (Acute) Anemia (Acute) GERD (gastroesophageal reflux disease) (Chronic) Asthma (Acute) Hypertension (Acute) Constipation (Acute) Hypertension (Chronic) Surgical History S/P insertion of iliac artery stent bilateral, 2016 History of cholecystectomy Hx of cholecystectomy H/O: hysterectomy H/O mastectomy History of endoscopy Family History Mother Heart disease Other Breast cancer Social History Smoking Status: Current every day smoker Tobacco Type: Cigarettes packs per day: 1; Cigarettes Per Day: 1 ppd; Second Hand Exposure: Yes; Do You Dip or Chew Tobacco: No; Hx Alcohol Use: No Hx Substance Use: No Preferred Language: Nepalese Communication Ability: Effective Senior Ssis Developer Required: No Beliefs That Will Affect Care: None Current Living Situation: Spouse Feels Safe at Home: Yes Safety Concerns: Feels Safe At This Time Assistive Devices: Denture - Upper, Denture - Lower, Glasses and Hearing Aid - Bilateral Assistive Devices Comment: glasses and hearing aids not with pt Review of Systems Review of Systems: All systems reviewed & are unremarkable except as noted in HPI & below Physical Exam Physical Exam: Constitutional: Elderly, F, NAD, lying in bed comfortably, vitals as above, NAD, sitting up in bed, pleasant, conversing easily Head: Normocephalic, Atraumatic Eyes: PERRL, conjunctivae normal, anicteric sclerae ENMT: external ear and nose normal, oropharynx normal Neck: trachea midline, no thyromegaly normal visual inspection Respiratory: normal respiratory effort, lungs clear to auscultation, no wheeze, rales, rhonchi. Normal insp/exp effort, no accessory muscle use Cardiovascular: RRR, no murmur, no edema Vessels: no JVD or carotid bruit Chest: normal inspection of chest + pain to palpation L chest wall as well as flex/ext left shoulder and L scapular region Abdomen: normal bowel sounds, soft, nontender, no hepatosplenomegaly Musculoskeletal: no cyanosis or clubbing, AROM x 4 Skin: no rashes, warm and dry normal turgor Neurologic: PERRL, EOMI, accommodation nl, no face palsy, no dysarthria CN's II-XI intact bilaterally and moves all extremities Psychiatric: A+Ox3, euthymic affect Lymphatic: no cervical or axillary lymphadenopathy : deferred Results & Data Results & Data Vital Signs (Past 12 Hours) Vital Signs Temp Pulse Resp BP Pulse Ox O2 Del Method 06/22/24 12:30 66 17 95 06/22/24 12:03 71 06/22/24 12:00 70 18 132/95 93 06/22/24 11:22 36.8 C 70 19 179/79 H 94 Room Air 06/22/24 11:09 71 15 177/79 H 96 Laboratory Results I have independently reviewed and interpreted patient's admitting labs including CBC, CMP, PTT, PT/INR, mag and troponin. Diagnostic Findings Chest X-Ray 06/22/24 11:22 XR chest 1V portable CLINICAL HISTORY: Chest pain, nonspecific COMPARISON STUDY: 01/26/2023 FINDINGS: Stable small hiatal hernia. Heart size and pulmonary vasculature are normal. No effusion, consolidation, or pneumothorax. IMPRESSION: No acute findings. ACT 112: Negative or not required by law. Electronically signed by: Harpal Abdullahi M.D. 06/22/2024 11:49 AM Cervical Spine X-Ray 06/22/24 12:24 XR cervical spine 2 or 3V CLINICAL HISTORY: neck pain COMPARISON STUDY: None FINDINGS: There is severe diffuse degenerative disc disease. No fracture or subluxation. There are carotid bulb calcifications. IMPRESSION: Degenerative disc disease. ACT 112: Negative or not required by law. Electronically signed by: Harpal Abdullahi M.D. 06/22/2024 1:25 PM Medications Administered Medication List Discontinued Medications Aspirin (Aspirin Chew 324 Mg) 324 mg PO NOW STA Stop: 06/22/24 13:05 Last Admin: 06/22/24 13:27 Dose: Not Given Documented By: ERIBERTO Hydromorphone HCl (Hydromorphone Inj 0.5 Mg/0.5 Ml Syr) 0.5 mg IV NOW STA Stop: 06/22/24 13:37 Last Admin: 06/22/24 13:54 Dose: 0.5 mg Documented By: ERIBERTO Ketorolac Tromethamine (Ketorolac Tromethamine 15 Mg/Ml Vial) 10 mg IV NOW ONE Stop: 06/22/24 12:25 Last Admin: 06/22/24 12:34 Dose: 10 mg Documented By: ERIBERTO Ondansetron HCl (Ondansetron Inj 2 Mg/Ml 2 Ml Vial) 4 mg IV NOW STA Stop: 06/22/24 13:38 Last Admin: 06/22/24 13:54 Dose: 4 mg Documented By: ERIBERTO ECG Additional Comments: I have independently reviewed and interpreted patient's admitting EKG which revealed: 73, NSR, no st or t wave abn noted, qtc 447ms COVID-19 Results Results COVID-19 Adm Lab Results: RBC 4.29 M/uL (4.20-5.40) 06/22/24 WBC 10.01 K/ul (4.8-10.8) 06/22/24 Hgb 13.5 g/dl (12.0-16.0) 06/22/24 Hct 38.1 % (37.0-47.0) 06/22/24 Plt Count 224 K/uL (130-400) 06/22/24 Neutrophils (%) (Auto) 72.9 % 06/22/24 Lymphocytes (%) (Auto) 13.2 % 06/22/24 Monocytes # (Auto) 1.10 K/uL (0.11-0.59) H 06/22/24 Eosinophils # (Auto) 0.21 K/uL (0.00-0.50) 06/22/24 Immature Granulocyte % (Auto) 0.3 % 06/22/24 Neutrophils # (Auto) 7.30 K/uL (1.40-6.50) H 06/22/24 Lymphocytes # (Auto) 1.32 K/uL (1.20-3.40) 06/22/24 Monocytes # (Auto) 1.10 K/uL (0.11-0.59) H 06/22/24 Eosinophils # (Auto) 0.21 K/uL (0.00-0.50) 06/22/24 Basophils # (Auto) 0.05 K/uL (0.00-0.20) 06/22/24 Immature Granulocyte # (Auto) 0.03 K/uL (0.01-0.20) 5 Na 145 mmol/L (136-145) 06/22/24 K 3.1 mmol/L (3.5-5.1) L 06/22/24 Cl 109 mmol/L (98-107) H 06/22/24 CO2 28 mmol/L (21-32) 06/22/24 Anion Gap 8 (3-11) 06/22/24 BUN 23 mg/dl (6-23) 06/22/24 Creatinine 1.35 mg/dl (0.6-1.2) H 06/22/24 BUN/Creatinine Ratio 17.0 (10-20) 06/22/24 Glucose Level 98 mg/dl (70-99(Fasting)) 06/22/24 Ca 9.1 mg/dl (8.6-10.3) 06/22/24 Total Bilirubin 0.9 mg/dl (0.2-1.0) 06/22/24 AST/SGOT 17 U/L (13-39) 06/22/24 ALT/SGPT 9 U/L (7-52) 06/22/24 Alkaline Phosphatase 52 U/L (34-104) 06/22/24 Total Protein 6.5 gm/dl (6.0-8.3) 06/22/24 Albumin 3.6 gm/dl (3.4-5.0) 06/22/24 Globulin 2.9 gm/dl (2.5-4.0) 06/22/24 Albumin/Globulin Ratio 1.2 (0.9-2) 06/22/24 CRP 1.86 mg/dl (0-0.5) H 06/22/24 PTT Seconds (21-31) 06/22/24 INR 1.0 (0.9-1.1) 06/22/24 Adenovirus (PCR) Not Detected (NotDetected) 06/22/24 B. parapertussis DNA (PCR) Not Detected (NotDetected) 05/28 11/17 B. pertussis DNA (PCR) Not Detected (NotDetected) 06/22/24 C. pneumoniae DNA (PCR) Not Detected (NotDetected) 5 Coronavirus Type OC43 (PCR) Not Detected (NotDetected) Coronavirus Type HKU1 (PCR) Not Detected (NotDetected) Coronavirus Type 229E (PCR) Not Detected (NotDetected) COVID-19 PCR Not Detected (NotDetected) 06/22/24 Coronavirus Type NL63 (PCR) Not Detected (NotDetected) Human Metapneumovirus (PCR) Not Detected (NotDetected) Influenza Virus Type A (PCR) Not Detected (NotDetected) Influenza Virus Type B (PCR) Not Detected (NotDetected) M. pneumoniae (PCR) Not Detected (NotDetected) 06/22/24 Parainfluenza Type 1 (PCR) Not Detected (NotDetected) 05/28 11/17 Parainfluenza Type 2 (PCR) Not Detected (NotDetected) 05/28 11/17 Parainfluenza Type 3 (PCR) Not Detected (NotDetected) 05/28 11/17 Parainfluenza Type 4 (PCR) Not Detected (NotDetected) 05/28 11/17 RSV (PCR) Not Detected (NotDetected) 06/22/24 Enterovirus/Rhinovirus (PCR) Not Detected (NotDetected) Chest X-Ray 06/22/24 Code Status & VTE Plan Code Status FULL CODE. VTE Prophylaxis Plan VTE Prophylaxis will be ordered: Yes Supervising Physician Co-Signing Physician Notes 78-year-old lady with PMH of HTN, HLD, COPD, PAD, subclavian artery stenosis on the right, right internal carotid artery stenosis, GERD, osteoporosis presents with complaint of chest pain since last evening. Patient reports cough for few weeks, denies nausea/vomiting/sore throat/diarrhea/pain or burning while passing urine. Patient reports poor appetite since last few days. Patient's chest pain is reproducible at bedside exam. Labs reviewed, CBC fairly WNL, potassium 3.1, replete. Creatinine 1.35 [baseline around 0.8], LFT WNL. Troponin 15 and 26. Respiratory pathogen panel negative. CXR and cervical Spine x-ray with no acute findings. Atypical chest pain, troponin minimally elevated, high CVD risk pt. Cardiology consult, echo, trend trop, telemetry monitoring. Diclofenac gel given reproducible chest pain as well. MARI: Continue with IV fluid. Suspect in the setting of recent flulike illness and poor appetite prior to arrival. Hypokalemia, replace. Monitor replete in AM. Examination findings as above. I have seen and examined the patient and have discussed the case with the provider above. I agree with the assessment and plan as stated. Time spent separately: 25 minutes
[2024-06-22 14:50] LABS: Troponin I High Sensitivity 26.5 pg/ml (0-14)
[2024-06-22] MEDS: POTASSIUM CHLORIDE CRTAB 20 MEQ TABCR PO STA (15:04)
[2024-06-22] MEDS ORDERED: ACETAMINOPHEN 325 MG TAB PO PRN (15:47)
[2024-06-22] MEDS ORDERED: ALUMINUM/MAGNESIUM SUSP 30 ML UDC PO PRN (15:47)
[2024-06-22] MEDS ORDERED: FAMOTIDINE 20 MG TAB PO PRN (15:47)
[2024-06-22] MEDS ORDERED: ONDANSETRON INJ 2 MG/ML 2 ML VIAL IV PRN (15:47)
[2024-06-22 16:41] LABS: C Reactive Protein 1.86 mg/dl (0-0.5)
--- NOTE | 2024-06-22 17:05 | Cardiology Consultation ---
Date of Consultation June 22, 2024 Assessment & Plan (1) Non-cardiac chest pain: (2) PAD (peripheral artery disease): (3) Subclavian artery stenosis, right: (4) Hypertension: Plan Current examination reveals patient known to this practice with diffuse vascular disease but with current symptoms of greater than 16 hours duration of severe left shoulder pain worse with movement and palpation. Findings are not consistent with acute coronary syndrome. Troponin is mildly elevated but flat no acute EKG changes and normal LV function on echocardiogram Recommendations: Continue prehospital cardiac medication Supplement potassium Investigate alternate causes of shoulder and neck pain History of Present Illness Reason for Consultation: Left shoulder neck and chest pain [facility]ing [facility] Attending Physician: Tamara Kam MD History of Present Illness Patient is a 78-year-old female with complex vascular history 1. Generalized atherosclerosis. 2. Atherosclerotic peripheral vascular disease with chronic right subclavian stenosis and carotid steal syndrome. 3. Common iliac stenting, bilateral, for bilateral lower claudication, September of 2015. 4. Hypertension. 5. Hyperlipidemia. 6. Chronic tobacco use. 7. Presumed coronary atherosclerosis, heavy coronary calcification with negative nuclear stress test in 2015, and dobutamine stress 08/2017. Patient presents this admission having developed severe pain in the left neck shoulder upper chest and back worse with head movement and arm movement beginning approximately 9 PM last evening. Symptoms have been persistent since onset. Worse with movement and activity. No fevers or chills. Chronic smoker cough. No sputum production. No change in medications other than recent increase in antihypertensives. Taking medications as prescribed. No bleeding issues. No recent falls or injuries. Had a possible viral illness in the past 1 month Does note poor appetite with at least 10 pound weight loss. Does continue to smoke Allergies Allergy/AdvReac Type Severity Reaction Status Date / Time morphine Allergy Mild UNSURE Verified 01/27/23 00:29 clarithromycin Allergy Unknown Unknown Verified 01/27/23 00:29 codeine Allergy Unknown Unknown Verified 01/27/23 00:29 Penicillins Allergy Unknown Unknown Verified 01/27/23 00:29 nitroglycerin AdvReac Severe BP DROP Verified 01/27/23 00:29 Home Medications Medication Instructions Recorded Confirmed Type aspirin 81 mg chewable tablet 81 mg PO QPM ##0 09/02/17 06/22/24 History atorvastatin 20 mg tablet 20 mg PO QPM 02/08/20 06/22/24 History cyanocobalamin (vitamin B-12) 1,000 mcg PO QPM 11/13/21 06/22/24 History 1,000 mcg tablet (Vitamin B-12) cholecalciferol (vitamin D3) 50 50 mcg PO PM 01/27/23 06/22/24 History mcg (2,000 unit) tablet (Vitamin D3) hydrochlorothiazide 12.5 mg capsule 12.5 mg PO DAILY 06/22/24 06/22/24 History losartan 100 mg tablet 100 mg PO PM 06/22/24 06/22/24 History pantoprazole 20 mg tablet,delayed 20 mg PO PM 06/22/24 06/22/24 History release Patient History Surgical History S/P insertion of iliac artery stent bilateral, 2016 History of cholecystectomy Hx of cholecystectomy H/O: hysterectomy H/O mastectomy History of endoscopy Family History Mother Heart disease Other Breast cancer Social History Smoking Status: Current every day smoker Tobacco Type: Cigarettes packs per day: 1; Cigarettes Per Day: 1 ppd; Second Hand Exposure: Yes; Do You Dip or Chew Tobacco: No; Hx Alcohol Use: No Hx Substance Use: No Preferred Language: Thai Communication Ability: Effective Admiralty Lawyer Required: No Beliefs That Will Affect Care: None Current Living Situation: Spouse Feels Safe at Home: Yes Safety Concerns: Feels Safe At This Time Assistive Devices: Denture - Upper, Denture - Lower, Glasses and Hearing Aid - Bilateral Assistive Devices Comment: glasses and hearing aids not with pt Review of Systems Review of Systems: All systems reviewed & are unremarkable except as noted in HPI & below Physical Exam Constitutional: + ill appearing and + thin; no acute dis tress Eyes: PERRL, conjunctivae normal, anicteric sclerae Neck: trachea midline, no thyromegaly Respiratory: Auscultation: + bronchovesicular breath sounds Rhonchorous cough on forced expiration Cardiovascular: Rate/Rhythm: regular rate and regular rhythm Heart Sounds: normal S1 and normal S2 Vessels: no JVD Extremities: no edema Diminished pulses right lower and right upper extremity. Intact left radial pulse Gastrointestinal (Abdomen): normal bowel sounds, soft, nontender, no hepatosplenomegaly Musculoskeletal: Severe pain on palpation of the left shoulder and movement of the left arm upward Results & Data Vital Signs (Past 12 Hours) Vital Signs Temp Pulse Pulse Resp BP BP Pulse Ox 06/22/24 16:01 36.9 C 68 20 128/74 95 06/22/24 14:45 68 15 133/69 95 06/22/24 14:26 133/69 06/22/24 14:06 75 12 94 06/22/24 13:00 88 19 146/87 H 97 06/22/24 12:30 66 17 95 06/22/24 12:03 71 06/22/24 12:00 70 18 132/95 93 06/22/24 11:22 36.8 C 70 19 179/79 H 94 06/22/24 11:09 71 15 177/79 H 96 O2 Del Method 06/22/24 16:01 Room Air 06/22/24 14:45 06/22/24 14:26 06/22/24 14:06 06/22/24 13:00 Room Air 06/22/24 12:30 06/22/24 12:03 06/22/24 12:00 06/22/24 11:22 Room Air 06/22/24 11:09 Laboratory Results Laboratory Results - last 24 hr 06/22/24 06/22/24 11:18 14:12 WBC 10.01 RBC 4.29 Hgb 13.5 Hct 38.1 MCV 88.8 MCH 31.5 MCHC 35.4 RDW Std Deviation 40.4 RDW Coeff of Layla 12.4 Plt Count 224 MPV 11.9 Immature Gran % (Auto) 0.3 Neut % (Auto) 72.9 Lymph % (Auto) 13.2 [place] % (Auto) 11.0 Eos % (Auto) 2.1 Baso % (Auto) 0.5 Neut # (Auto) 7.30 H Lymph # (Auto) 1.32 [place] # (Auto) 1.10 H Eos # (Auto) 0.21 Baso # (Auto) 0.05 Immature Gran # (Auto) 0.03 ESR 23 PT 10.7 INR 1.0 APTT 25 PTT Ratio 0.9 Sodium 145 Potassium 3.1 L Chloride 109 H Carbon Dioxide 28 Anion Gap 8 BUN 23 Creatinine 1.35 H Est Cr Clr Drug Dosing 30.8 eGFR 39.98 BUN/Creatinine Ratio 17.0 Glucose 98 Calcium 9.1 Total Bilirubin 0.9 AST 17 ALT 9 Alkaline Phosphatase 52 Troponin I High Sens 15.8 H 26.5 H D C-Reactive Protein 1.86 H Total Protein 6.5 Albumin 3.6 Globulin 2.9 Albumin/Globulin Ratio 1.2 Adenovirus (PCR) Not Detected B. pertussis DNA (PCR) Not Detected B.parapertussis DNA PCR Not Detected C. pneumoniae DNA (PCR) Not Detected Coronavirus OC43 (PCR) Not Detected Coronavirus HKU1 (PCR) Not Detected Coronavirus 229E (PCR) Not Detected SARS-CoV-2 (PCR) Not Detected Coronavirus NL63 (PCR) Not Detected Human Metapneumovir PCR Not Detected Influenza Type A (PCR) Not Detected Influenza Type B (PCR) Not Detected M. pneumoniae (PCR) Not Detected Parainfluenza 1 (PCR) Not Detected Parainfluenza 2 (PCR) Not Detected Parainfluenza 3 (PCR) Not Detected Parainfluenza 4 (PCR) Not Detected RSV (PCR) Not Detected Entero/Rhino (PCR) Not Detected Diagnostic Findings Echocardiogram 06/22/2024 Mild left ventricular hypertrophy with normal wall motion, EF 55 to 60% No pericardial effusion Normal aortic root size ECG Additional Comments: 06/22/2024 Normal sinus rhythm at [address] segment changes. No acute findings to suggest ischemia or injury and no change from prior study
[2024-06-22] MEDS: DICLOFENAC SOD 1% GEL 100 GM TUBE EXT STA (17:28)
[2024-06-22] MEDS: NSS + 20MEQ KCL 20 MEQ/1,000 ML BAG IV SCH (17:47)
[2024-06-22] MEDS: DICLOFENAC SOD 1% GEL 100 GM TUBE EXT SCH (17:48)
--- NOTE | 2024-06-22 18:10 | XRay Report ---
Clinical History: Pain. 3 views of the left shoulder are submitted for review. Findings: No fracture or dislocation is seen. There is mild acromioclavicular and glenohumeral osteoarthritis. There is osteopenia. No other osseous abnormality is identified. There are no radiopaque foreign bodies. Impression: Mild osteoarthritis Electronically signed by Layton Odonnell 06-22-2024 6:10 PM
--- NOTE | 2024-06-22 18:12 | XRay Report ---
Clinical History: Pain. 4 views of the left ribs are submitted for review. Findings: No definite fracture is seen. No focal osseous lesion is evident. No other osseous abnormality is identified. There are no radiopaque foreign bodies. Impression: No definite rib fracture Electronically signed by Layton Odonnell 06-22-2024 6:12 PM
[2024-06-22] MEDS: ATORVASTATIN 20 MG TAB PO SCH (20:02)
[2024-06-22] MEDS: PANTOprazole 40 MG TAB PO SCH (20:02)
[2024-06-22] MEDS: LOSARTAN POTASSIUM 50 MG TAB PO SCH (20:02)
[2024-06-22] MEDS: CYANOCOBALAMIN (B-12) 500 MCG TABLET PO SCH (20:02)
[2024-06-22] MEDS: CHOLECALCIFEROL 25 MCG (1000 UNITS) TAB PO SCH (20:02)
[2024-06-22] MEDS ORDERED: MELATONIN 3 MG TAB PO PRN (21:00)
[2024-06-23 06:50] LABS: Basophils # (auto) 0.05 K/uL (0.00-0.20); Basophils % (auto) 0.7 %; Eosinophils # (auto) 0.27 K/uL (0.00-0.50); Eosinophils % (auto) 3.6 %; Hematocrit (blood only) 32.5 % (37.0-47.0); Hemoglobin 11.3 g/dl (12.0-16.0); Immature Granulocytes # (auto) 0.03 K/uL (0.01-0.20); Immature Granulocytes % (auto) 0.4 %; Lymphocytes # (auto) 1.83 K/uL (1.20-3.40); Lymphocytes % (auto) 24.4 %; Mean Corpuscular Hemoglobin 31.4 pg (25.0-34.0); Mean Corpuscular Hgb Conc 34.8 g/dL (32.0-36.0); Mean Corpuscular Volume 90.3 fL (80.0-100.0); Mean Platelet Volume 11.8 fL (9.4-12.4); Monocytes # (auto) 0.75 K/uL (0.11-0.59); Neutrophils # (auto) 4.56 K/uL (1.40-6.50); Neutrophils % (auto) 60.9 %; Platelet Count 184 K/uL (130-400); RDW Coefficient of Variation 12.4 % (11.5-14.5); RDW Standard Deviation 41.2 fL (36.4-46.3); White Blood Count 7.49 K/ul (4.8-10.8)
[2024-06-23 07:21] LABS: BUN Creatinine Ratio 17.3 (10-20); Calcium 7.8 mg/dl (8.6-10.3); Chol HDL Ratio 3.6 (0-5); Creatinine Clr Calc Pharmacy 24.2 ml/min; Magnesium 1.3 mg/dl (1.7-2.4)
[2024-06-23 07:25] LABS: Estimated Average Glucose 128 mg/dl; Hemoglobin A1C 6.1 % (4.5-5.6)
[2024-06-23] MEDS: SODIUM CHLORIDE 0.9% 1,000 ML IV SCH (08:16)
[2024-06-23] MEDS: MAGNESIUM SULFATE / D5W 1 GM/100 ML BAG IV SCH (08:19)
[2024-06-23] MEDS: hydroCHLOROthiazide 25 MG TAB PO SCH (08:27)
[2024-06-23 11:28] VITALS: BP 144/70; RESP 18; TEMP 99.1; O2SAT 95
[2024-06-23 11:30] LABS: Calcium 8.5 mg/dl (8.6-10.3); Creatinine Clr Calc Pharmacy 24.7 ml/min; Magnesium 2.1 mg/dl (1.7-2.4); Potassium 3.8 mmol/L (3.5-5.1)
[2024-06-23 14:05] VITALS: PULSE 64
--- NOTE | 2024-06-23 14:50 | Discharge Summary ---
Discharge Summary Date of Service June 23, 2024 Principal Dx & Hospital Course #1 = Principal Diagnosis (1) Atypical chest pain: (2) PAD (peripheral artery disease): (3) Subclavian artery stenosis, right: (4) Tobacco use disorder: Plan This is a 78-year-old female who has a significant past medical history of HTN, HLD, COPD, PAD, subclavian artery stenosis on the right, right internal carotid artery stenosis, GERD, osteoporosis, depression, history of breast cancer who presents to ED secondary to chest pain since 9pm last evening. #Atypical Chest Pain #Elevated troponin #Left Shoulder Pain -noted tenderness to palpation on exam -cardiac pathology ruled out, appreciate cardiology consultation -patient did not want PT/OT or further imaging, and wanted to go home -MARI and Mg improved with fluids and supplementation #MARI: baseline cr 1.0, today 1.35, and outpt 06/15 was 1.5, suspect in setting of recent flu like illness, gentle hydration, avoid nephrotoxic agents (received toradol in ed) and follow renal fxn #Hypokalemia: replace #PAD/R subclavian stenosis: follows [facility] [place] [facility], hx of MARY stent 2015, continue asa, statin #Tobacco abuse: 1ppd smoker, encourage cessation #COPD: no acute exac Notes For Next Care Provider This is a 78-year-old female who has a significant past medical history of HTN, HLD, COPD, PAD, subclavian artery stenosis on the right, right internal carotid artery stenosis, GERD, osteoporosis, depression, history of breast cancer who presents to ED secondary to chest pain since 9pm last evening. Cardiology consulted, ruled noncardiac in nature. On 06/23/2024 patient refused PT/OT or further imaging of left shoulder and was medically stable for discharge. Medication Changes From Visit -voltaren cream Admission HPI Per Admitting Provider This is a 78-year-old female who has a significant past medical history of HTN, HLD, COPD, PAD, subclavian artery stenosis on the right, right internal carotid artery stenosis, GERD, osteoporosis, depression, history of breast cancer who presents to ED secondary to chest pain since 9pm last evening. Pt and daughter are at bedside who help elicit hx. Of significance she follows with [facility] vascular in regards to her PAD and subclavian stenosis. She did require percutaneous intervention with placement of MARY stents in 2016 due to claudication and continues to follow with them yearly. She is maintained on aspirin and Atorvastatin. She also follows with [facility] cardiology. She was last seen in 2023. Her last dobutamine stress echo was in 2018 which was negative for inducible ischemia. Patient states she started with an abrupt onset of right-sided chest pain at 9 PM last evening. At the time she was just lying in bed. Pain radiates to her left shoulder and down her left arm as well as to her neck. She denies any recent injury, fall or trauma. She denies having similar symptoms in the past. She has a strong past history of GERD and states it does not feel like this. She did have associated nausea with it but denies any associated diaphoresis or shortness of breath. She did try walking around to see if it would make it better, but it remained unchanged. She reports recently being ill the month of May. She states having a flulike illness for most of the month with fever, chills, weakness and cough. She continues to have a dry cough but also is a 1 pack/day smoker. She reports decreased intake throughout this month. She reports her pain is currently a 6 out of 10. She feels that the IV Toradol improved her symptoms. In ED patient remained hemodynamically stable. Her EKG was without ischemic change but she did have a mild bump in her troponin at 15 with a repeat in 2 hours being at 26.5. Her potassium was mildly low at 3.1 and her creatinine was bumped to 1.35. Outpatient chart review revealed that she had lab work on 06/15 which revealed a creatinine of 1.5. It appears her baseline creatinine is approximately 1. Discharge Exam Gen: A&O 3 NAD HEENT: NCAT, EOMI, not icteric. External ears normal. No rhinorrhea. Moist mucous membranes. Neck: Supple, full range of motion, no observable masses, No meningeal sign. Lungs: No Respiratory distress. CV: RRR, no edema. Abdomen: Soft, nondistended, No rebound tenderness. MSK: No joint swelling, no redness. Left shoulder and muscle tenderness, muscle energy performed with improvement in left rotation of neck, myofascial release performed on left trapezius with improvement in tenderness and increased ROM Skin: No rashes, petechiae, lesions. Normal color per patient. Neuro: Normal Gait, Grossly intact. Psych: Appropriate for situation. Updated Medication List Medication Instructions Recorded Confirmed Type aspirin 81 mg chewable tablet 81 mg PO QPM ##0 09/02/17 06/22/24 History atorvastatin 20 mg tablet 20 mg PO QPM 02/08/20 06/22/24 History cyanocobalamin (vitamin B-12) 1,000 mcg PO QPM 11/13/21 06/22/24 History 1,000 mcg tablet (Vitamin B-12) cholecalciferol (vitamin D3) 50 50 mcg PO PM 01/27/23 06/22/24 History mcg (2,000 unit) tablet (Vitamin D3) hydrochlorothiazide 12.5 mg capsule 12.5 mg PO DAILY 06/22/24 06/22/24 History losartan 100 mg tablet 100 mg PO PM 06/22/24 06/22/24 History pantoprazole 20 mg tablet,delayed 20 mg PO PM 06/22/24 06/22/24 History release diclofenac sodium 1 % topical gel 2 g EXT QID #100 grams 06/23/24 Rx (Voltaren Arthritis Pain) Hospital Stay Data Consultations 06/22/24 13:04 ED Decision to Admit Stat 06/22/24 15:05 Consult Cardiology Routine Pending Results Patient Have Any Pending Studies at Discharge: No Discharge Instructions Given to Patient (Per Discharging Provider) 1. Please keep your left arm and shoulder moving, doing range of motion exercises (look up online). Total Time Total Time Spent Total Time Spent (In Minutes): I spent a total of 35 minutes in direct patient care, including [id number] time with the patient and/or family, reviewing medical records, ordering and reviewing diagnostic tests, and coordinating care with other healthcare providers. This time includes: history taking, physical examination, medical decision making, counseling, ECG interpretation, imaging interpretation, lab interpretation, orders, and education, excluding time spent in the performance of separately billed services.
[2024-06-23] MEDS ORDERED: ASPIRIN 81 MG CHEW PO SCH (21:00)
--- NOTE | 2024-06-23 23:17 | Electrocardiogram Report ---
Test Reason : Blood Pressure : */* mmHG Vent. Rate : 73 BPM Atrial Rate : 73 BPM P-R Int : 146 ms QRS Dur : 74 ms QT Int : 406 ms P-R-T Axes : 35 55 37 degrees QTcB Int : 447 ms Normal sinus rhythm Nonspecific ST and T wave abnormality Abnormal ECG When compared with ECG of 28-Jan-2023 06:45, No significant change was found Confirmed by Sammy Bowens ([id number]) on 06/23/2024 11:17:13 PM Referred By: REFERRED SELF Confirmed By: Sammy Bowens
== END 2024-06-23 14:36 | disposition home or self-care (01) ==
LOC: ED 10:58 → 2S 10:58 → SUATTDRO 14:14 → 2S 16:05